=== PATIENT | female | born 1945 | race Hispanic/Latino ===

== ENCOUNTER 2019-02-26 08:02 | Emergency (ER) | payer MEDICARE ==
--- NOTE | 2019-02-26 08:53 | Emergency Department Report ---
ED General Adult HPI - General Chief complaint: Chest Pain Stated complaint: CHEST PAIN Time Seen by Provider: 02/26/19 08:40 Source: patient, EMS Mode of arrival: Stretcher Limitations: Physical Limitation, Other - History of Present Illness Initial comments: She presents to the emergency department with a chief complaint of left-sided sharp chest pain without radiation that has been continuous in nature for the last 2 days. Patient denies shortness breath, abdominal pain, nausea, vomiting. Patient denies a history of heart issues and states that she does not have high blood pressure although it's indicated on her chart. -: Sudden, days(s) (2) Location: chest Radiation: non-radiation Severity scale (0 -10): 3 Quality: sharp Consistency: constant Improves with: none Worsens with: none Associated Symptoms: denies other symptoms Treatments Prior to Arrival: none - Related Data Home Medications Medication Instructions Recorded Confirmed Last Taken Metoprolol [Lopressor TAB] 50 mg PO BID 02/26/19 02/26/19 02/25/19 20:00 Perphenazine/Amitriptyline HCl 4 mg PO BID 02/26/19 02/26/19 02/25/19 20:00 [Perphen-Amitrip 4 mg-10 mg] amLODIPine [Norvasc] 5 mg PO DAILY 02/26/19 02/26/19 02/25/19 08:00 risperiDONE [RisperiDONE] 3 mg PO QDAY 02/26/19 02/26/19 02/25/19 20:00 Allergies Allergy/AdvReac Type Severity Reaction Status Date / Time No Known Allergies Allergy Verified 02/26/19 08:16 ED Review of Systems ROS: Stated complaint: CHEST PAIN Other details as noted in HPI Comment: All other systems reviewed and negative Constitutional: denies: chills, fever Eyes: denies: eye pain, eye discharge, vision change ENT: denies: ear pain, throat pain Respiratory: denies: cough, shortness of breath, wheezing Cardiovascular: chest pain. denies: palpitations Endocrine: no symptoms reported Gastrointestinal: denies: abdominal pain, nausea, diarrhea Genitourinary: denies: urgency, dysuria, discharge Musculoskeletal: denies: back pain, joint swelling, arthralgia Skin: denies: rash, lesions Neurological: denies: headache, weakness, paresthesias Psychiatric: denies: anxiety, depression Hematological/Lymphatic: denies: easy bleeding, easy bruising ED Past Medical Hx - Past Medical History Previous Medical History?: Yes Hx Hypertension: Yes Hx Psychiatric Treatment: Yes (Bi-Polar) Hx Dementia: Yes - Surgical History Past Surgical History?: Yes Hx Cholecystectomy: Yes Additional Surgical History: "intestinal surgery" - Social History Smoking Status: Never Smoker Substance Use Type: None - Medications Home Medications: Home Medications Medication Instructions Recorded Confirmed Last Taken Type Metoprolol [Lopressor TAB] 50 mg PO BID 02/26/19 02/26/19 02/25/19 20:00 History Perphenazine/Amitriptyline HCl 4 mg PO BID 02/26/19 02/26/19 02/25/19 20:00 History [Perphen-Amitrip 4 mg-10 mg] amLODIPine [Norvasc] 5 mg PO DAILY 02/26/19 02/26/19 02/25/19 08:00 History risperiDONE [RisperiDONE] 3 mg PO QDAY 02/26/19 02/26/19 02/25/19 20:00 History ED Physical Exam - General Limitations: Physical Limitation, Other General appearance: alert, in no apparent distress - Head Head exam: Present: atraumatic, normocephalic - Eye Eye exam: Present: normal appearance, PERRL, EOMI - ENT ENT exam: Present: mucous membranes moist - Neck Neck exam: Present: normal inspection - Respiratory Respiratory exam: Present: normal lung sounds bilaterally. Absent: respiratory distress, wheezes, rales - Cardiovascular Cardiovascular Exam: Present: regular rate, normal rhythm. Absent: systolic murmur, diastolic murmur, rubs, gallop - GI/Abdominal GI/Abdominal exam: Present: soft, normal bowel sounds. Absent: distended, tenderness - Extremities Exam Extremities exam: Present: normal inspection - Back Exam Back exam: Present: normal inspection - Neurological Exam Neurological exam: Present: alert, oriented X3, CN II-XII intact. Absent: motor sensory deficit - Psychiatric Psychiatric exam: Present: normal affect, normal mood - Skin Skin exam: Present: warm, dry, intact, normal color. Absent: rash ED Course Vital Signs 02/26/19 02/26/19 02/26/19 08:30 08:37 08:52 Temperature 98.2 F Pulse Rate 65 60 Respiratory 18 20 Rate Blood Pressure 173/71 Blood Pressure 173/71 [Left] O2 Sat by Pulse 97 98 Oximetry 02/26/19 02/26/19 02/26/19 09:00 09:16 09:30 Temperature Pulse Rate 57 L 55 L 54 L Respiratory 12 14 20 Rate Blood Pressure 173/71 188/82 188/82 Blood Pressure [Left] O2 Sat by Pulse 96 97 98 Oximetry 02/26/19 02/26/19 02/26/19 09:46 10:00 10:16 Temperature Pulse Rate 53 L 56 L 55 L Respiratory 10 L 15 12 Rate Blood Pressure 180/72 180/72 156/81 Blood Pressure [Left] O2 Sat by Pulse 98 98 97 Oximetry 02/26/19 02/26/19 02/26/19 10:30 10:46 11:00 Temperature Pulse Rate 49 L 55 L 61 Respiratory 14 15 16 Rate Blood Pressure 156/81 158/70 158/70 Blood Pressure [Left] O2 Sat by Pulse 97 97 98 Oximetry 02/26/19 02/26/19 02/26/19 11:16 11:30 11:46 Temperature Pulse Rate 56 L 56 L 56 L Respiratory 14 13 14 Rate Blood Pressure 173/74 173/74 180/77 Blood Pressure [Left] O2 Sat by Pulse 97 98 97 Oximetry 02/26/19 02/26/19 12:00 12:04 Temperature 98.4 F Pulse Rate 59 L 61 Respiratory 17 15 Rate Blood Pressure 180/77 Blood Pressure 178/66 [Left] O2 Sat by Pulse 96 98 Oximetry ED Medical Decision Making - Lab Data Result diagrams: 02/26/19 08:24 02/26/19 08:24 Lab Results 02/26/19 02/26/19 02/26/19 Range/Units 08:24 08:24 08:24 WBC 8.3 (4.5-11.0) K/mm3 RBC 4.71 (3.65-5.03) M/mm3 Hgb 14.4 H (10.1-14.3) gm/dl Hct 42.7 (30.3-42.9) % MCV 91 (79-97) fl MCH 31 (28-32) pg MCHC 34 (30-34) % RDW 13.5 (13.2-15.2) % Plt Count 237 (140-440) K/mm3 Lymph % (Auto) 38.9 H (13.4-35.0) % [place] % (Auto) 5.6 (0.0-7.3) % Eos % (Auto) 2.0 (0.0-4.3) % Baso % (Auto) 0.7 (0.0-1.8) % Lymph # 3.2 (1.2-5.4) K/mm3 [place] # 0.5 (0.0-0.8) K/mm3 Eos # 0.2 (0.0-0.4) K/mm3 Baso # 0.1 (0.0-0.1) K/mm3 Seg Neutrophils % 52.8 (40.0-70.0) % Seg Neutrophils # 4.4 (1.8-7.7) K/mm3 PT 12.6 (12.2-14.9) Sec. INR 0.97 (0.87-1.13) APTT 32.0 (24.2-36.6) Sec. Sodium 142 (137-145) mmol/L Potassium 4.5 (3.6-5.0) mmol/L Chloride 105.0 (98-107) mmol/L Carbon Dioxide 25 (22-30) mmol/L Anion Gap 17 mmol/L BUN 21 H (7-17) mg/dL Creatinine 0.8 (0.7-1.2) mg/dL Estimated GFR > 60 ml/min BUN/Creatinine Ratio 26 % Glucose 100 (65-100) mg/dL Calcium 9.2 (8.4-10.2) mg/dL Troponin T < 0.010 (0.00-0.029) ng/mL NT-Pro-B Natriuret Pep (0-900) pg/mL Urine Color (Yellow) Urine Turbidity (Clear) Urine pH (5.0-7.0) Ur Specific [place] (1.003-1.030) Urine Protein (Negative) mg/dL Urine Glucose (UA) (Negative) mg/dL Urine Ketones (Negative) mg/dL Urine Blood (Negative) Urine Nitrite (Negative) Urine Bilirubin (Negative) Urine Urobilinogen (<2.0) mg/dL Ur Leukocyte Esterase (Negative) Urine WBC (Auto) (0.0-6.0) /HPF Urine RBC (Auto) (0.0-6.0) /HPF U Epithel Cells (Auto) (0-13.0) /HPF Urine Mucus /HPF Urine Opiates Screen Urine Methadone Screen Ur Barbiturates Screen Ur Phencyclidine Scrn Ur Amphetamines Screen U Benzodiazepines Scrn Urine Cocaine Screen U Marijuana (THC) Screen Drugs of Abuse Note 02/26/19 02/26/19 02/26/19 Range/Units 08:24 11:07 12:04 WBC (4.5-11.0) K/mm3 RBC (3.65-5.03) M/mm3 Hgb (10.1-14.3) gm/dl Hct (30.3-42.9) % MCV (79-97) fl MCH (28-32) pg MCHC (30-34) % RDW (13.2-15.2) % Plt Count (140-440) K/mm3 Lymph % (Auto) (13.4-35.0) % [place] % (Auto) (0.0-7.3) % Eos % (Auto) (0.0-4.3) % Baso % (Auto) (0.0-1.8) % Lymph # (1.2-5.4) K/mm3 [place] # (0.0-0.8) K/mm3 Eos # (0.0-0.4) K/mm3 Baso # (0.0-0.1) K/mm3 Seg Neutrophils % (40.0-70.0) % Seg Neutrophils # (1.8-7.7) K/mm3 PT (12.2-14.9) Sec. INR (0.87-1.13) APTT (24.2-36.6) Sec. Sodium (137-145) mmol/L Potassium (3.6-5.0) mmol/L Chloride (98-107) mmol/L Carbon Dioxide (22-30) mmol/L Anion Gap mmol/L BUN (7-17) mg/dL Creatinine (0.7-1.2) mg/dL Estimated GFR ml/min BUN/Creatinine Ratio % Glucose (65-100) mg/dL Calcium (8.4-10.2) mg/dL Troponin T < 0.010 (0.00-0.029) ng/mL NT-Pro-B Natriuret Pep 76.94 (0-900) pg/mL Urine Color (Yellow) Urine Turbidity (Clear) Urine pH (5.0-7.0) Ur Specific [place] (1.003-1.030) Urine Protein (Negative) mg/dL Urine Glucose (UA) (Negative) mg/dL Urine Ketones (Negative) mg/dL Urine Blood (Negative) Urine Nitrite (Negative) Urine Bilirubin (Negative) Urine Urobilinogen (<2.0) mg/dL Ur Leukocyte Esterase (Negative) Urine WBC (Auto) (0.0-6.0) /HPF Urine RBC (Auto) (0.0-6.0) /HPF U Epithel Cells (Auto) (0-13.0) /HPF Urine Mucus /HPF Urine Opiates Screen Presumptive negative Urine Methadone Screen Presumptive negative Ur Barbiturates Screen Presumptive negative Ur Phencyclidine Scrn Presumptive negative Ur Amphetamines Screen Presumptive negative U Benzodiazepines Scrn Presumptive negative Urine Cocaine Screen Presumptive negative U Marijuana (THC) Screen Presumptive negative Drugs of Abuse Note Disclamer 02/26/19 Range/Units 13:00 WBC (4.5-11.0) K/mm3 RBC (3.65-5.03) M/mm3 Hgb (10.1-14.3) gm/dl Hct (30.3-42.9) % MCV (79-97) fl MCH (28-32) pg MCHC (30-34) % RDW (13.2-15.2) % Plt Count (140-440) K/mm3 Lymph % (Auto) (13.4-35.0) % [place] % (Auto) (0.0-7.3) % Eos % (Auto) (0.0-4.3) % Baso % (Auto) (0.0-1.8) % Lymph # (1.2-5.4) K/mm3 [place] # (0.0-0.8) K/mm3 Eos # (0.0-0.4) K/mm3 Baso # (0.0-0.1) K/mm3 Seg Neutrophils % (40.0-70.0) % Seg Neutrophils # (1.8-7.7) K/mm3 PT (12.2-14.9) Sec. INR (0.87-1.13) APTT (24.2-36.6) Sec. Sodium (137-145) mmol/L Potassium (3.6-5.0) mmol/L Chloride (98-107) mmol/L Carbon Dioxide (22-30) mmol/L Anion Gap mmol/L BUN (7-17) mg/dL Creatinine (0.7-1.2) mg/dL Estimated GFR ml/min BUN/Creatinine Ratio % Glucose (65-100) mg/dL Calcium (8.4-10.2) mg/dL Troponin T (0.00-0.029) ng/mL NT-Pro-B Natriuret Pep (0-900) pg/mL Urine Color Yellow (Yellow) Urine Turbidity Clear (Clear) Urine pH 7.0 (5.0-7.0) Ur Specific [place] 1.015 (1.003-1.030) Urine Protein <15 mg/dl (Negative) mg/dL Urine Glucose (UA) Neg (Negative) mg/dL Urine Ketones Neg (Negative) mg/dL Urine Blood Neg (Negative) Urine Nitrite Neg (Negative) Urine Bilirubin Neg (Negative) Urine Urobilinogen < 2.0 (<2.0) mg/dL Ur Leukocyte Esterase Neg (Negative) Urine WBC (Auto) 1.0 (0.0-6.0) /HPF Urine RBC (Auto) 1.0 (0.0-6.0) /HPF U Epithel Cells (Auto) < 1.0 (0-13.0) /HPF Urine Mucus Few /HPF Urine Opiates Screen Urine Methadone Screen Ur Barbiturates Screen Ur Phencyclidine Scrn Ur Amphetamines Screen U Benzodiazepines Scrn Urine Cocaine Screen U Marijuana (THC) Screen Drugs of Abuse Note - EKG Data -: EKG Interpreted by Me EKG shows normal: sinus rhythm Rate: normal - Radiology Data Radiology results: report reviewed - Medical Decision Making Discussed results with patient Critical care attestation.: If time is entered above; I have spent that time in minutes in the direct care of this critically ill patient, excluding procedure time. ED Disposition Clinical Impression: Nonspecific chest pain Disposition: DC- TO HOME OR SELFCARE Is pt being admited?: No Does the pt Need Aspirin: No Condition: Stable Instructions: Noncardiac Chest Pain (ED), Chest Pain (ED) Additional Instructions: return if worse Referrals: PATTY MAYA MD [Primary Care Provider] - 3-5 Days TRIPP DUGAN MD [Staff Physician] - 3-5 Days [facility] [Provider Group] - 3-5 Days [facility] [Provider Group] - 3-5 Days Forms: Work/School Release Form(ED) Time of Disposition: 14:01
[2019-02-26 09:02] LABS: Basophils # (Auto) 0.1 K/mm3 (0.0-0.1); Basophils % (Auto) 0.7 % (0.0-1.8); Eosinophils # (Auto) 0.2 K/mm3 (0.0-0.4); Hematocrit 42.7 % (30.3-42.9); Hemoglobin 14.4 gm/dl (10.1-14.3); Lymphocytes # (Auto) 3.2 K/mm3 (1.2-5.4); Lymphocytes % (Auto) 38.9 % (13.4-35.0); Mean Corpuscular HGB Conc 34 % (30-34); Mean Corpuscular Volume 91 fl (79-97); Monocytes # (Auto) 0.5 K/mm3 (0.0-0.8); Monocytes % (Auto) 5.6 % (0.0-7.3); Platelet Count 237 K/mm3 (140-440); Red Blood Count 4.71 M/mm3 (3.65-5.03); Red Cell Distribution Width 13.5 % (13.2-15.2)
--- NOTE | 2019-02-26 09:07 | XRay Report ---
CHEST 1 VIEW, 02/26/2019 8:44 AM INDICATION: Chest pain COMPARISON: None FINDINGS: SUPPORT DEVICES: None HEART: Cardiac silhouette and pulmonary vascularity appear within normal limits LUNGS/PLEURA: There is no focal airspace disease or significant pleural effusion ADDITIONAL FINDINGS: No additional acute findings. IMPRESSION: 1. No evidence of acute cardiopulmonary process. Signer Name: Lary Monge MD Signed: 02/26/2019 9:02 AM Workstation Name: [id number]
[2019-02-26 09:12] LABS: INR 0.97 (0.87-1.13)
[2019-02-26 09:13] LABS: BUN/Creatinine Ratio 26; Blood Urea Nitrogen 21 mg/dL (7-17); Calcium 9.2 mg/dL (8.4-10.2); Hemolysis Index 14
[2019-02-26 12:20] LABS: Amphetamine Screen,Urine PRESUMPTIVE NEGATIVE; Benzodiazepines Screen,Urine PRESUMPTIVE NEGATIVE; Cannabinoid Screen,Urine PRESUMPTIVE NEGATIVE; Cocaine Screen,Urine PRESUMPTIVE NEGATIVE; Methadone Screen,Urine PRESUMPTIVE NEGATIVE; Opiate Screen,Urine PRESUMPTIVE NEGATIVE
[2019-02-26 13:36] LABS: Bilirubin,Urine NEG (Negative); Blood,Urine NEG (Negative); Color,Urine Yellow (Yellow); Mucus,Urine FEW /HPF; Protein,Urine <15 mg/dL mg/dL (Negative); Urobilinogen,Urine < 2.0 mg/dL (<2.0)
[2019-02-26 14:40] VITALS: BP 193/79
== END 2019-02-26 15:08 | disposition home or self-care (01) ==
LOC: ED 08:02
DX: R07.89 Other chest pain (principal); I10 Essential (primary) hypertension; F31.9 Bipolar disorder, unspecified; F03.90 Unspecified dementia, unspecified severity, without behavioral disturbance, psychotic disturbance, mood disturbance, and anxiety; Z90.49 Acquired absence of other specified parts of digestive tract; Z98.890 Other specified postprocedural states; Z79.899 Other long term (current) drug therapy
CPT/HCPCS: 36415; 71045; 80048; 80307; 81001; 83880; 84484; 85025; 85610; 85730; 93005; 93010

== ENCOUNTER 2021-08-16 19:46 | Emergency (ER) | payer MEDICARE ==
--- NOTE | 2021-08-16 21:31 | Emergency Department Report ---
HPI - General Chief Complaint: Altered Mental Status Time Seen by Provider: 08/16/21 20:57 - HPI HPI: Room 4 The patient is a 76-year-old female presenting with a chief complaint of altered mental status. Patient has a history of dementia and bipolar disorder is at an assisted living facility. Staff there states that the patient had her breakfast this evening at 18: 00 is normal and then went back to her room. Staff went to check on her and found her lying in the bed faceup with eyes open focused on one spot. Staff states the patient did not respond to them and so 911 was called. Staff states the patient remained with her eyes open but not speaking for approximately 30 to 40 minutes. The patient has a history of dementia and is normally confused at baseline. Upon arrival to the ED the patient is alert and talkative. Patient is pleasantly demented and not oriented to place or time ED Past Medical Hx - Past Medical History Previous Medical History?: Yes Hx Hypertension: Yes Hx Psychiatric Treatment: Yes (Bi-Polar) Hx Dementia: Yes - Surgical History Past Surgical History?: Yes Hx Cholecystectomy: Yes Additional Surgical History: "intestinal surgery" - Family History Family history: no significant - Social History Smoking Status: Never Smoker Substance Use Type: None - Medications Home Medications: Home Medications Medication Instructions Recorded Confirmed Last Taken Type Metoprolol [Lopressor TAB] 50 mg PO BID 02/26/19 04/13/21 04/12/21 07:00 History amLODIPine 5 mg PO DAILY 02/26/19 04/13/21 04/12/21 08:00 History risperiDONE [RisperiDONE] 3 mg PO QHS 02/26/19 04/13/21 02/25/19 20:00 History Divalproex [Grabiel Brooke] 500 mg PO QHS 04/13/21 04/13/21 04/11/21 20:00 History risperiDONE [RisperDAL] 2 mg PO DAILY 04/13/21 04/13/21 04/12/21 07:00 History traZODone [Desyrel] 50 mg PO QHS 04/13/21 04/13/21 04/11/21 20:00 History Amitriptyline [Elavil] 10 mg PO BID tablet 04/21/21 Unknown Rx Apixaban [Eliquis] 10 mg PO BID 30 Days #120 tablet 04/21/21 Unknown Rx Perphenazine [Trilafon] 4 mg PO BID tablet 04/21/21 Unknown Rx risperiDONE [RisperDAL] 2 mg PO DAILY tablet 04/21/21 Unknown Rx ED Review of Systems ROS: Stated complaint: AMS Other details as noted in HPI Constitutional: no symptoms reported Eyes: denies: eye pain ENT: denies: throat pain Respiratory: no symptoms reported Cardiovascular: denies: chest pain Endocrine: no symptoms reported Gastrointestinal: denies: abdominal pain Genitourinary: denies: dysuria Musculoskeletal: denies: back pain Neurological: denies: headache Psychiatric: other (Mental status change) Physical Exam - Physical Exam Vital Signs: Vital Signs 08/16/21 08/16/21 08/16/21 20:00 20:33 20:41 Temperature 98 F Pulse Rate 72 Respiratory 18 15 Rate Blood Pressure 200/76 Blood Pressure [Left] O2 Sat by Pulse 100 95 99 Oximetry 08/16/21 08/16/21 20:46 20:47 Temperature 96.8 F L Pulse Rate 72 73 Respiratory 10 L 19 Rate Blood Pressure 155/58 Blood Pressure 155/58 [Left] O2 Sat by Pulse 96 95 Oximetry Physical Exam: GENERAL: The patient is well-developed well-nourished female lying on stretcher not appearing to be in acute distress. [] HEENT: Normocephalic. Atraumatic. Extraocular motions are intact. Patient has moist mucous membranes. NECK: Supple. Trachea midline CHEST/LUNGS: Clear to auscultation. There is no respiratory distress noted. HEART/CARDIOVASCULAR: Regular. There is no tachycardia. There is no gallop rub or murmur. ABDOMEN: Abdomen is soft, nontender. Patient has normal bowel sounds. There is no abdominal distention. SKIN: There is no rash. There is no edema. There is no diaphoresis. NEURO: The patient is awake and alert. The patient is cooperative. The patient has no focal neurologic deficits. The patient has normal speech. Cranial nerves II through XII grossly intact. GCS 15 MUSCULOSKELETAL: There is no evidence of acute injury. ED Course Vital Signs 08/16/21 08/16/21 08/16/21 20:00 20:33 20:41 Temperature 98 F Pulse Rate 72 Respiratory 18 15 Rate Blood Pressure 200/76 Blood Pressure [Left] O2 Sat by Pulse 100 95 99 Oximetry 08/16/21 08/16/21 20:46 20:47 Temperature 96.8 F L Pulse Rate 72 73 Respiratory 10 L 19 Rate Blood Pressure 155/58 Blood Pressure 155/58 [Left] O2 Sat by Pulse 96 95 Oximetry ED Medical Decision Making - Lab Data Result diagrams: 08/16/21 21:24 08/16/21 21:24 Laboratory Tests 08/16/21 08/16/21 08/16/21 21:24 21:24 21:24 WBC 9.0 RBC 4.35 Hgb 13.0 Hct 39.1 MCV 90 MCH 30 MCHC 33 RDW 15.1 Plt Count 268 Lymph % (Auto) 26.0 [place] % (Auto) 7.0 Eos % (Auto) 1.5 Baso % (Auto) 0.7 Lymph # (Auto) 2.3 [place] # (Auto) 0.6 Eos # (Auto) 0.1 Baso # (Auto) 0.1 Seg Neutrophils % 64.8 Seg Neutrophils # 5.8 Sodium 142 Potassium 4.9 Chloride 103.7 Carbon Dioxide 27 Anion Gap 16 BUN 27 H Creatinine 0.6 Estimated GFR > 60 BUN/Creatinine Ratio 45 Glucose 97 Calcium 9.6 Total Bilirubin < 0.20 AST 50 H ALT 38 Alkaline Phosphatase 161 H Ammonia 12.0 L Total Creatine Kinase 32 CK-MB (CK-2) 1.4 CK-MB (CK-2) Rel Index 4.3 H Troponin T < 0.010 Total Protein 6.4 Albumin 3.7 L Albumin/Globulin Ratio 1.4 Valproic Acid Plasma/Serum Alcohol 08/16/21 08/16/21 22:48 22:48 WBC RBC Hgb Hct MCV MCH MCHC RDW Plt Count Lymph % (Auto) [place] % (Auto) Eos % (Auto) Baso % (Auto) Lymph # (Auto) [place] # (Auto) Eos # (Auto) Baso # (Auto) Seg Neutrophils % Seg Neutrophils # Sodium Potassium Chloride Carbon Dioxide Anion Gap BUN Creatinine Estimated GFR BUN/Creatinine Ratio Glucose Calcium Total Bilirubin AST ALT Alkaline Phosphatase Ammonia Total Creatine Kinase CK-MB (CK-2) CK-MB (CK-2) Rel Index Troponin T Total Protein Albumin Albumin/Globulin Ratio Valproic Acid 12.0 L Plasma/Serum Alcohol < 0.01 - EKG Data -: EKG Interpreted by De EKG shows normal: sinus rhythm Rate: normal - EKG Data When compared to previous EKG there are: previous EKG unavailable Interpretation: other (No ischemic changes seen) - Radiology Data Radiology results: report reviewed (CT head), image reviewed (CT head) [facility] [address] [place] [address] Cat Scan Report Signed Patient: PRITESH DARNELL MR#: [id number] : 1945 Acct:[id number] Age/Sex: 76 / F ADM Date: 08/16/21 Loc: ED Attending Dr: Ordering Physician: BLAS BRIGHT MD Date of Service: 08/16/21 Procedure(s): CT head/brain wo con Accession Number(s): [id number] cc: BLAS BRIGHT MD CT HEAD WITH OUT CONTRAST INDICATION: Episode of unresponsiveness. TECHNIQUE: All CT scans at this location are performed using CT dose reduction for ALARA by means of automated exposure control. COMPARISON: None available. FINDINGS: HEMORRHAGE: None. EXTRA-AXIAL SPACES: Normal in size and morphology for the patient's age. VENTRICULAR SYSTEM: Normal in size and morphology for the patient's age. BRAIN PARENCHYMA: No acute findings. Mild diffuse atrophy is noted. Deep periventricular white matter hypodensities are likely due to microangiopathy. MIDLINE SHIFT OR HERNIATION: None. ORBITS: Normal as visualized. SOFT TISSUES OF HEAD: Normal. CALVARIUM: Normal. VISUALIZED PARANASAL SINUSES AND MASTOID AIR CELLS: Clear. ADDITIONAL FINDINGS: None. IMPRESSION: 1. No acute intracranial abnormality. Signer Name: Jorge Gonzalez MD Signed: 08/16/2021 10:36 PM Workstation Name: [id number] Transcribed By: Dictated By: Jorge Gonzalez MD Electronically Authenticated By: Jorge Gonzalez MD Signed Date/Time: 08/16/21 2 236 DD/ 32 TD/TT: - Differential Diagnosis Bipolar disorder, dementia, catatonia, metabolic encephalopathy Critical care attestation.: If time is entered above; I have spent that time in minutes in the direct care of this critically ill patient, excluding procedure time. ED Disposition Clinical Impression: Dementia Disposition: [facility] Is pt being admited?: No Does the pt Need Aspirin: No Condition: Stable Referrals: MITRA RODRIGUEZ MD [Primary Care Provider] - 3-5 Days Time of Disposition: 00:03
[2021-08-16 22:17] LABS: Basophils # (Auto) 0.1 K/mm3 (0.0-0.1); Basophils % (Auto) 0.7 % (0.0-1.8); Eosinophils # (Auto) 0.1 K/mm3 (0.0-0.4); Eosinophils % (Auto) 1.5 % (0.0-4.3); Hematocrit 39.1 % (30.3-42.9); Lymphocytes # (Auto) 2.3 K/mm3 (1.2-5.4); Mean Corpuscular HGB Conc 33 % (30-34); Mean Corpuscular Volume 90 fl (79-97); Monocytes # (Auto) 0.6 K/mm3 (0.0-0.8); Platelet Count 268 K/mm3 (140-440); Red Blood Count 4.35 M/mm3 (3.65-5.03); Red Cell Distribution Width 15.1 % (13.2-15.2)
[2021-08-16 22:32] LABS: Creatine Kinase MB 1.4 ng/mL (0.0-4.0)
[2021-08-16 22:35] LABS: Alanine Aminotransferase 38 units/L (7-56); Albumin 3.7 g/dL (3.9-5); Blood Urea Nitrogen 27 mg/dL (7-17); Calcium 9.6 mg/dL (8.4-10.2); Hemolysis Index 30
[2021-08-16 22:41] LABS: BUN/Creatinine Ratio 45
--- NOTE | 2021-08-16 22:41 | Cat Scan Report ---
CT HEAD WITHOUT CONTRAST INDICATION: Episode of unresponsiveness. TECHNIQUE: All CT scans at this location are performed using CT dose reduction for ALARA by means of automated e xposure control. COMPARISON: None available. FINDINGS: HEMORRHAGE: None. EXTRA-AXIAL SPACES: Normal in size and morphology for the patient's age. VENTRICULAR SYSTEM: Normal in size and morphology for the patient's age. BRAIN PARENCHYMA: No acute findings. Mild diffuse atrophy is noted. Deep periventricular white matter hypodensities are likely due to microangiopathy. MIDLINE SHIFT OR HERNIATION: None. ORBITS: Normal as visualized. SOFT TISSUES OF HEAD: Normal. CALVARIUM: Normal. VISUALIZED PARANASAL SINUSES AND MASTOID AIR CELLS: Clear. ADDITIONAL FINDINGS: None. IMPRESSION: 1. No acute intracranial abnormality. Signer Name: Jorge Gonzalez MD Signed: 08/16/2021 10:36 PM Workstation Name: [id number]
[2021-08-17 01:29] VITALS: BP 119/43
--- NOTE | 2021-08-17 09:40 | Electrocardiograph Report ---
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
== END 2021-08-17 01:31 ==
LOC: ED 19:46
DX: F03.90 Unspecified dementia, unspecified severity, without behavioral disturbance, psychotic disturbance, mood disturbance, and anxiety (principal); I10 Essential (primary) hypertension; F31.9 Bipolar disorder, unspecified; Z90.49 Acquired absence of other specified parts of digestive tract
CPT/HCPCS: 36415; 70450; 80053; 80164; 80320; 82140; 82550; 82553; 84484; 85025; 93005; 93010; 99284; G0480

== ENCOUNTER 2021-10-06 15:53 | Emergency (ER) | payer MEDICARE ==
[2021-10-06 16:01] VITALS: BP 136/88
--- NOTE | 2021-10-06 16:33 | Emergency Department Report ---
ED Fall HPI - General Chief Complaint: Fall Stated Complaint: R LEG PAIN Time Seen by Provider: 10/06/21 16:21 Source: patient, EMS Mode of arrival: Stretcher - History of Present Illness Initial Comments: Patient is 76-year-old female with history of dementia. Patient brought to the emergency room for personal-halfway for evaluation after a fall that happened last night. EMS stated that another group went yesterday and patient was not taken to the ER. EMS reported that personnel home care staff reported that when she woke up this morning and try to walk her right lower extremity is hurting her and is unable to walk. Patient stated that she does not remember the incident very well. MD Complaint: fall -: Last night Fall From: standing Place Fall Occurred: custodial/SNF Loss of Consciousness: none Prolonged Down Time?: no Symptoms Prior to Fall: none Location: head, pelvis Location - Extremities: Right: Knee Severity scale (0 -10): 3 Quality: sharp Context: tripped/slipped Associated Symptoms: denies - Related Data Home Medications Medication Instructions Recorded Confirmed Last Taken Metoprolol [Lopressor TAB] 50 mg PO BID 02/26/19 04/13/21 04/12/21 07:00 amLODIPine 5 mg PO DAILY 02/26/19 04/13/21 04/12/21 08:00 risperiDONE [RisperiDONE] 3 mg PO QHS 02/26/19 04/13/21 02/25/19 20:00 Divalproex [Grabiel Brooke] 500 mg PO QHS 04/13/21 04/13/21 04/11/21 20:00 risperiDONE [RisperDAL] 2 mg PO DAILY 04/13/21 04/13/21 04/12/21 07:00 traZODone [Desyrel] 50 mg PO QHS 04/13/21 04/13/21 04/11/21 20:00 Previous Rx's Medication Instructions Recorded Last Taken Type Amitriptyline [Elavil] 10 mg PO BID tablet 04/21/21 Unknown Rx Apixaban [Eliquis] 10 mg PO BID 30 Days #120 tablet 04/21/21 Unknown Rx Perphenazine [Trilafon] 4 mg PO BID tablet 04/21/21 Unknown Rx risperiDONE [RisperDAL] 2 mg PO DAILY tablet 04/21/21 Unknown Rx Allergies Allergy/AdvReac Type Severity Reaction Status Date / Time No Known Allergies Allergy Verified 02/26/19 08:16 ED Review of Systems ROS: Stated complaint: R LEG PAIN Other details as noted in HPI Comment: All other systems reviewed and negative Constitutional: denies: chills, fever Respiratory: denies: cough, shortness of breath, SOB with exertion Cardiovascular: denies: chest pain, palpitations Gastrointestinal: denies: abdominal pain, nausea, vomiting Musculoskeletal: denies: back pain Neurological: denies: headache, weakness, numbness, paresthesias, confusion, abnormal gait Psychiatric: denies: anxiety ED Past Medical Hx - Past Medical History Hx Hypertension: Yes Hx Psychiatric Treatment: Yes (Bi-Polar) Hx Dementia: Yes - Surgical History Hx Cholecystectomy: Yes Additional Surgical History: "intestinal surgery" - Social History Smoking Status: Never Smoker Substance Use Type: None - Medications Home Medications: Home Medications Medication Instructions Recorded Confirmed Last Taken Type Metoprolol [Lopressor TAB] 50 mg PO BID 02/26/19 04/13/21 04/12/21 07:00 History amLODIPine 5 mg PO DAILY 02/26/19 04/13/21 04/12/21 08:00 History risperiDONE [RisperiDONE] 3 mg PO QHS 02/26/19 04/13/21 02/25/19 20:[address] [Grabiel Brooke] 500 mg PO QHS 04/13/21 04/13/21 04/11/21 20:00 History risperiDONE [RisperDAL] 2 mg PO DAILY 04/13/21 04/13/21 04/12/21 07:00 History traZODone [Desyrel] 50 mg PO QHS 04/13/21 04/13/21 04/11/21 20:00 History Amitriptyline [Elavil] 10 mg PO BID tablet 04/21/21 Unknown Rx Apixaban [Eliquis] 10 mg PO BID 30 Days #120 tablet 04/21/21 Unknown Rx Perphenazine [Trilafon] 4 mg PO BID tablet 04/21/21 Unknown Rx risperiDONE [RisperDAL] 2 mg PO DAILY tablet 04/21/21 Unknown Rx ED Physical Exam - General Limitations: Physical Limitation General appearance: alert, in no apparent distress - Head Head exam: Present: atraumatic, normocephalic, normal inspection - Eye Eye exam: Present: normal appearance - ENT ENT exam: Present: normal exam, normal orophraynx, mucous membranes moist - Neck Neck exam: Present: normal inspection, full ROM. Absent: tenderness, meningismus - Respiratory Respiratory exam: Present: normal lung sounds bilaterally - Cardiovascular Cardiovascular Exam: Present: regular rate, normal rhythm, normal heart sounds - GI/Abdominal GI/Abdominal exam: Present: soft, normal bowel sounds. Absent: distended, tenderness, guarding, rebound, rigid, organomegaly, mass, bruit, pulsatile mass, hernia - Extremities Exam Extremities exam: Present: normal inspection, normal capillary refill - Expanded Lower Extremity Exam Right Knee exam: Present: tenderness, swelling Lower Leg exam: Present: normal inspection, full ROM. Absent: tenderness Ankle exam: Present: normal inspection, full ROM. Absent: tenderness Foot/Toe exam: Present: normal inspection, full ROM. Absent: tenderness Neuro vascular tendon exam: Present: no vascular compromise - Back Exam Back exam: Present: normal inspection, full ROM. Absent: CVA tenderness (R), CVA tenderness (L), muscle spasm - Neurological Exam Neurological exam: Present: alert, oriented X3, CN II-XII intact - Psychiatric Psychiatric exam: Present: normal mood - Skin Skin exam: Present: warm ED Course Vital Signs 10/06/21 16:00 Temperature 98.1 F Pulse Rate 78 Respiratory 16 Rate Blood Pressure 136/88 [Left] O2 Sat by Pulse 97 Oximetry ED Medical Decision Making - Radiology Data Radiology results: report reviewed - Medical Decision Making Patient is 76-year-old female with history of dementia. Patient brought to the emergency room for personal-halfway for evaluation after a fall that happened last night. EMS stated that another group went yesterday and patient was not taken to the ER. EMS reported that personnel home care staff reported that when she woke up this morning and try to walk her right lower extremity is hurting her and is unable to walk. Patient stated that she does not remember the incident very well. Patient remained stable in the ER with a stable vital sign. CT brain is negative for acute finding. X-ray of the right hip and right knee showed no acute fracture or dislocation. Patient given prescription for Naprosyn advised to follow-up with primary doctor in the next 2 to 3 days and to return to the ER if she develop any new symptoms. Critical care attestation.: If time is entered above; I have spent that time in minutes in the direct care of this critically ill patient, excluding procedure time. ED Disposition Clinical Impression: Fall, Right knee injury Disposition: 01 HOME / SELF CARE / HOMELESS Is pt being admited?: No Condition: Stable Instructions: Knee Sprain, Adult, [id number] Referrals: PRIMARY CARE,MD [Primary Care Provider] - 3-5 Days
--- NOTE | 2021-10-06 20:14 | XRay Report ---
RIGHT KNEE, 2 VIEW INDICATION / CLINICAL INFORMATION: knee injury. Right leg pain after a fall. COMPARISON: . None FINDINGS: The bones are demineralized. I do not see acute fracture or dislocation. There is no significant join t effusion. Moderate degenerative changes are present in the knee primarily affecting the medial join t compartment. No significant soft tissue abnormality noted. IMPRESSION: Degenerative changes but no suggestion of acute fracture or dislocation. Signer Name: aMia Fairbanks MD Signed: 10/06/2021 8:09 PM Workstation Name: [id number]
--- NOTE | 2021-10-06 20:15 | XRay Report ---
RIGHT HIP, 4 VIEWS INDICATION / CLINICAL INFORMATION: right lower extremity injury. Patient fell COMPARISON: None available. FINDINGS: No fracture or dislocation involving the right hip. Mild degenerative changes present in the right hi p. Accompanying view of the pelvis is also unremarkable. IMPRESSION: No acute fracture or dislocation involving the right hip/pelvis. Signer Name: Maia Fairbanks MD Signed: 10/06/2021 8:11 PM Workstation Name: [id number]
--- NOTE | 2021-10-06 21:03 | Cat Scan Report ---
CT head/brain wo con INDICATION: head injury. TECHNIQUE: Routine CT head. All CT scans at this location are performed using CT dose reduction for A AMEENA by means of automated exposure control. COMPARISON: 08/16/2021 FINDINGS: Intracranial: Mijares-white matter differentiation is maintained. No intracranial hemorrhage. No extra a xial collection. No hydrocephalus. No herniation. Small area of encephalomalacia in the right occipit al lobe. Sinuses: Paranasal sinuses and mastoid air cells are essentially clear. Orbits: Globes are intact. Calvarium: No acute fracture. Sebaceous cysts in the posterior scalp. IMPRESSION: 1. No acute intracranial abnormality. Signer Name: Harry Jacobson MD Signed: 10/06/2021 8:58 PM Workstation Name: [id number]
== END 2021-10-07 05:12 | disposition home or self-care (01) ==
LOC: ED 15:53
DX: S89.91XA Unspecified injury of right lower leg, initial encounter (principal); I10 Essential (primary) hypertension; F03.90 Unspecified dementia, unspecified severity, without behavioral disturbance, psychotic disturbance, mood disturbance, and anxiety; Z90.49 Acquired absence of other specified parts of digestive tract; W18.39XA Other fall on same level, initial encounter; Y93.89 Activity, other specified; Y92.89 Other specified places as the place of occurrence of the external cause; Y99.8 Other external cause status
CPT/HCPCS: 70450; 99284

== ENCOUNTER 2021-12-01 16:48 | Inpatient (IN) | payer MEDICARE ==
--- NOTE | 2021-12-01 18:18 | XRay Report ---
CHEST 1 VIEW 12/01/2021 5:42 PM INDICATION / CLINICAL INFORMATION: Altered Mental Status. COMPARISON: 04/12/2021 FINDINGS: SUPPORT DEVICES: None. HEART / MEDIASTINUM: No significant abnormality. LUNGS / PLEURA: No significant pulmonary or pleural abnormality. No pneumothorax. ADDITIONAL FINDINGS: No significant additional findings. IMPRESSION: No acute abnormality. Signer Name: Chuck Miller MD Signed: 12/01/2021 6:14 PM Workstation Name: [id number]
[2021-12-01 18:49] LABS: Basophils # (Auto) 0.1 K/mm3 (0.0-0.1); Basophils % (Auto) 0.8 % (0.0-1.8); Eosinophils % (Auto) 0.1 % (0.0-4.3); Hematocrit 46.2 % (30.3-42.9); Hemoglobin 15.1 gm/dl (10.1-14.3); Lymphocytes # (Auto) 3.2 K/mm3 (1.2-5.4); Lymphocytes % (Auto) 19.9 % (13.4-35.0); Mean Corpuscular HGB Conc 33 % (30-34); Mean Corpuscular Volume 91 fl (79-97); Monocytes # (Auto) 1.4 K/mm3 (0.0-0.8); Monocytes % (Auto) 8.9 % (0.0-7.3); Platelet Count 358 K/mm3 (140-440); Red Blood Count 5.08 M/mm3 (3.65-5.03); Red Cell Distribution Width 13.7 % (13.2-15.2)
[2021-12-01 18:59] LABS: Partial Thromboplastin Time 31.7 Sec. (24.2-36.6)
--- NOTE | 2021-12-01 19:01 | Emergency Department Report ---
ED General Adult HPI - General Chief complaint: Altered Mental Status Stated complaint: AMS Time Seen by Provider: 12/01/21 17:13 Source: EMS Mode of arrival: Stretcher Limitations: Altered Mental Status - History of Present Illness Initial comments: The patient presents to the emergency department via EMS for altered mental status. The patient resides in a [facility] and she was sent to the emergency department today because she was not responding like she normally does. There is no family at the bedside and all history is obtained via EMS. Patient is confused and does not answer questions on exam. -: unknown Severity scale (0 -10): 0 Consistency: constant Improves with: none Worsens with: none Treatments Prior to Arrival: none - Related Data Home Medications Medication Instructions Recorded Confirmed Last Taken Metoprolol [Lopressor TAB] 50 mg PO BID 02/26/19 04/13/21 04/12/21 07:00 amLODIPine 5 mg PO DAILY 02/26/19 04/13/21 04/12/21 08:00 risperiDONE [RisperiDONE] 3 mg PO QHS 02/26/19 04/13/21 02/25/19 20:[address] [Depakote Dr] 500 mg PO QHS 04/13/21 04/13/21 04/11/21 20:00 risperiDONE [RisperDAL] 2 mg PO DAILY 04/13/21 04/13/21 04/12/21 07:00 traZODone [Desyrel] 50 mg PO QHS 04/13/21 04/13/21 04/11/21 20:00 Previous Rx's Medication Instructions Recorded Last Taken Type Amitriptyline [Elavil] 10 mg PO BID tablet 04/21/21 Unknown Rx Apixaban [Eliquis] 10 mg PO BID 30 Days #120 tablet 04/21/21 Unknown Rx Perphenazine [Trilafon] 4 mg PO BID tablet 04/21/21 Unknown Rx risperiDONE [RisperDAL] 2 mg PO DAILY tablet 04/21/21 Unknown Rx Naproxen [Naprosyn] 500 mg PO BID #14 tablet 10/06/21 Unknown Rx Allergies Allergy/AdvReac Type Severity Reaction Status Date / Time No Known Allergies Allergy Verified 12/01/21 18:48 ED Review of Systems ROS: Stated complaint: AMS Other details as noted in HPI Comment: Unobtainable due to pts medical conditions (altered) ED Past Medical Hx - Past Medical History Previous Medical History?: Yes Hx Hypertension: Yes Hx Psychiatric Treatment: Yes (Bi-Polar) Hx Dementia: Yes - Surgical History Past Surgical History?: Yes Hx Cholecystectomy: Yes Additional Surgical History: "intestinal surgery" - Social History Smoking Status: Never Smoker - Medications Home Medications: Home Medications Medication Instructions Recorded Confirmed Last Taken Type Metoprolol [Lopressor TAB] 50 mg PO BID 02/26/19 04/13/21 04/12/21 07:00 History amLODIPine 5 mg PO DAILY 02/26/19 04/13/21 04/12/21 08:00 History risperiDONE [RisperiDONE] 3 mg PO QHS 02/26/19 04/13/21 02/25/19 20:[address] [Depakote Dr] 500 mg PO QHS 04/13/21 04/13/21 04/11/21 20:00 History risperiDONE [RisperDAL] 2 mg PO DAILY 04/13/21 04/13/21 04/12/21 07:00 History traZODone [Desyrel] 50 mg PO QHS 04/13/21 04/13/21 04/11/21 20:00 History Amitriptyline [Elavil] 10 mg PO BID tablet 04/21/21 Unknown Rx Apixaban [Eliquis] 10 mg PO BID 30 Days #120 tablet 04/21/21 Unknown Rx Perphenazine [Trilafon] 4 mg PO BID tablet 04/21/21 Unknown Rx risperiDONE [RisperDAL] 2 mg PO DAILY tablet 04/21/21 Unknown Rx Naproxen [Naprosyn] 500 mg PO BID #14 tablet 10/06/21 Unknown Rx ED Physical Exam - General Limitations: Altered Mental Status General appearance: in no apparent distress - Head Head exam: Present: atraumatic, normocephalic - Eye Eye exam: Present: normal appearance - ENT ENT exam: Present: mucous membranes dry - Neck Neck exam: Present: normal inspection - Respiratory Respiratory exam: Present: normal lung sounds bilaterally. Absent: respiratory distress - Cardiovascular Cardiovascular Exam: Present: tachycardia, irregular rhythm, other (Irregularly irregular). Absent: systolic murmur, diastolic murmur, rubs, gallop - GI/Abdominal GI/Abdominal exam: Present: soft, normal bowel sounds. Absent: distended, tenderness - Extremities Exam Extremities exam: Present: normal inspection - Back Exam Back exam: Present: normal inspection - Neurological Exam Neurological exam: Present: altered - Psychiatric Psychiatric exam: Present: normal affect, normal mood - Skin Skin exam: Present: warm, dry, intact, normal color. Absent: rash ED Course Vital Signs 12/01/21 12/01/21 12/01/21 17:03 17:31 17:45 Temperature 99.6 F Pulse Rate 111 H 106 H 108 H Respiratory 17 40 H 26 H Rate Blood Pressure 108/47 Blood Pressure 150/90 [Left] O2 Sat by Pulse 98 94 Oximetry 12/01/21 12/01/21 12/01/21 17:46 18:01 18:15 Temperature Pulse Rate 105 H 109 H Respiratory 46 H 32 H Rate Blood Pressure 119/48 119/48 Blood Pressure [Left] O2 Sat by Pulse 98 94 94 Oximetry 12/01/21 18:37 Temperature Pulse Rate 106 H Respiratory 21 Rate Blood Pressure Blood Pressure [Left] O2 Sat by Pulse 95 Oximetry ED Medical Decision Making - Lab Data Result diagrams: 12/01/21 18:05 12/01/21 18:05 Lab Results 12/01/21 12/01/21 12/01/21 Range/Units 18:05 18:05 18:05 WBC 16.2 H (4.5-11.0) K/mm3 RBC 5.08 H (3.65-5.03) M/mm3 Hgb 15.1 H (10.1-14.3) gm/dl Hct 46.2 H (30.3-42.9) % MCV 91 (79-97) fl MCH 30 (28-32) pg MCHC 33 (30-34) % RDW 13.7 (13.2-15.2) % Plt Count 358 (140-440) K/mm3 Lymph % (Auto) 19.9 (13.4-35.0) % [place] % (Auto) 8.9 H (0.0-7.3) % Eos % (Auto) 0.1 (0.0-4.3) % Baso % (Auto) 0.8 (0.0-1.8) % Lymph # (Auto) 3.2 (1.2-5.4) K/mm3 [place] # (Auto) 1.4 H (0.0-0.8) K/mm3 Eos # (Auto) 0.0 (0.0-0.4) K/mm3 Baso # (Auto) 0.1 (0.0-0.1) K/mm3 Seg Neutrophils % 70.3 H (40.0-70.0) % Seg Neutrophils # 11.4 H (1.8-7.7) K/mm3 PT 14.3 (12.2-14.9) Sec. INR 1.00 (0.87-1.13) APTT 31.7 (24.2-36.6) Sec. Sodium 137 (137-145) mmol/L Potassium 4.1 (3.6-5.0) mmol/L Chloride 97.0 L (98-107) mmol/L Carbon Dioxide 22 (22-30) mmol/L Anion Gap 22 mmol/L BUN 67 H (7-17) mg/dL Creatinine 1.1 (0.6-1.2) mg/dL Estimated GFR 48 ml/min BUN/Creatinine Ratio 61 % Glucose 142 H (65-100) mg/dL Lactic Acid (0.7-2.0) mmol/L Calcium 10.0 (8.4-10.2) mg/dL Total Bilirubin 0.30 (0.1-1.2) mg/dL AST 18 (5-40) units/L ALT 16 (7-56) units/L Alkaline Phosphatase 71 (35-129) units/L Ammonia (25-60) umol/L Total Creatine Kinase 327 H (30-135) units/L Troponin T < 0.010 (0.00-0.029) ng/mL NT-Pro-B Natriuret Pep (0-900) pg/mL Total Protein 7.4 (6.3-8.2) g/dL Albumin 3.9 (3.9-5) g/dL Albumin/Globulin Ratio 1.1 % TSH (0.270-4.200) mlU/mL Salicylates (2.8-20.0) mg/dL Acetaminophen (10.0-30.0) ug/mL Plasma/Serum Alcohol (0-0.07) % 12/01/21 12/01/21 12/01/21 Range/Units 18:05 18:05 18:05 WBC (4.5-11.0) K/mm3 RBC (3.65-5.03) M/mm3 Hgb (10.1-14.3) gm/dl Hct (30.3-42.9) % MCV (79-97) fl MCH (28-32) pg MCHC (30-34) % RDW (13.2-15.2) % Plt Count (140-440) K/mm3 Lymph % (Auto) (13.4-35.0) % [place] % (Auto) (0.0-7.3) % Eos % (Auto) (0.0-4.3) % Baso % (Auto) (0.0-1.8) % Lymph # (Auto) (1.2-5.4) K/mm3 [place] # (Auto) (0.0-0.8) K/mm3 Eos # (Auto) (0.0-0.4) K/mm3 Baso # (Auto) (0.0-0.1) K/mm3 Seg Neutrophils % (40.0-70.0) % Seg Neutrophils # (1.8-7.7) K/mm3 PT (12.2-14.9) Sec. INR (0.87-1.13) APTT (24.2-36.6) Sec. Sodium (137-145) mmol/L Potassium (3.6-5.0) mmol/L Chloride (98-107) mmol/L Carbon Dioxide (22-30) mmol/L Anion Gap mmol/L BUN (7-17) mg/dL Creatinine (0.6-1.2) mg/dL Estimated GFR ml/min BUN/Creatinine Ratio % Glucose (65-100) mg/dL Lactic Acid 1.60 (0.7-2.0) mmol/L Calcium (8.4-10.2) mg/dL Total Bilirubin (0.1-1.2) mg/dL AST (5-40) units/L ALT (7-56) units/L Alkaline Phosphatase (35-129) units/L Ammonia 29.0 (25-60) umol/L Total Creatine Kinase (30-135) units/L Troponin T (0.00-0.029) ng/mL NT-Pro-B Natriuret Pep (0-900) pg/mL Total Protein (6.3-8.2) g/dL Albumin (3.9-5) g/dL Albumin/Globulin Ratio % TSH 2.300 (0.270-4.200) mlU/mL Salicylates (2.8-20.0) mg/dL Acetaminophen (10.0-30.0) ug/mL Plasma/Serum Alcohol (0-0.07) % 12/01/21 12/01/21 12/01/21 Range/Units 18:05 18:05 18:05 WBC (4.5-11.0) K/mm3 RBC (3.65-5.03) M/mm3 Hgb (10.1-14.3) gm/dl Hct (30.3-42.9) % MCV (79-97) fl MCH (28-32) pg MCHC (30-34) % RDW (13.2-15.2) % Plt Count (140-440) K/mm3 Lymph % (Auto) (13.4-35.0) % [place] % (Auto) (0.0-7.3) % Eos % (Auto) (0.0-4.3) % Baso % (Auto) (0.0-1.8) % Lymph # (Auto) (1.2-5.4) K/mm3 [place] # (Auto) (0.0-0.8) K/mm3 Eos # (Auto) (0.0-0.4) K/mm3 Baso # (Auto) (0.0-0.1) K/mm3 Seg Neutrophils % (40.0-70.0) % Seg Neutrophils # (1.8-7.7) K/mm3 PT (12.2-14.9) Sec. INR (0.87-1.13) APTT (24.2-36.6) Sec. Sodium (137-145) mmol/L Potassium (3.6-5.0) mmol/L Chloride (98-107) mmol/L Carbon Dioxide (22-30) mmol/L Anion Gap mmol/L BUN (7-17) mg/dL Creatinine (0.6-1.2) mg/dL Estimated GFR ml/min BUN/Creatinine Ratio % Glucose (65-100) mg/dL Lactic Acid (0.7-2.0) mmol/L Calcium (8.4-10.2) mg/dL Total Bilirubin (0.1-1.2) mg/dL AST (5-40) units/L ALT (7-56) units/L Alkaline Phosphatase (35-129) units/L Ammonia (25-60) umol/L Total Creatine Kinase (30-135) units/L Troponin T (0.00-0.029) ng/mL NT-Pro-B Natriuret Pep (0-900) pg/mL Total Protein (6.3-8.2) g/dL Albumin (3.9-5) g/dL Albumin/Globulin Ratio % TSH (0.270-4.200) mlU/mL Salicylates < 0.3 L (2.8-20.0) mg/dL Acetaminophen 5.0 L (10.0-30.0) ug/mL Plasma/Serum Alcohol < 0.01 (0-0.07) % 06// Range/Units 18:05 WBC (4.5-11.0) K/mm3 RBC (3.65-5.03) M/mm3 Hgb (10.1-14.3) gm/dl Hct (30.3-42.9) % MCV (79-97) fl MCH (28-32) pg MCHC (30-34) % RDW (13.2-15.2) % Plt Count (140-440) K/mm3 Lymph % (Auto) (13.4-35.0) % [place] % (Auto) (0.0-7.3) % Eos % (Auto) (0.0-4.3) % Baso % (Auto) (0.0-1.8) % Lymph # (Auto) (1.2-5.4) K/mm3 [place] # (Auto) (0.0-0.8) K/mm3 Eos # (Auto) (0.0-0.4) K/mm3 Baso # (Auto) (0.0-0.1) K/mm3 Seg Neutrophils % (40.0-70.0) % Seg Neutrophils # (1.8-7.7) K/mm3 PT (12.2-14.9) Sec. INR (0.87-1.13) APTT (24.2-36.6) Sec. Sodium (137-145) mmol/L Potassium (3.6-5.0) mmol/L Chloride (98-107) mmol/L Carbon Dioxide (22-30) mmol/L Anion Gap mmol/L BUN (7-17) mg/dL Creatinine (0.6-1.2) mg/dL Estimated GFR ml/min BUN/Creatinine Ratio % Glucose (65-100) mg/dL Lactic Acid (0.7-2.0) mmol/L Calcium (8.4-10.2) mg/dL Total Bilirubin (0.1-1.2) mg/dL AST (5-40) units/L ALT (7-56) units/L Alkaline Phosphatase (35-129) units/L Ammonia (25-60) umol/L Total Creatine Kinase (30-135) units/L Troponin T (0.00-0.029) ng/mL NT-Pro-B Natriuret Pep 606.0 (0-900) pg/mL Total Protein (6.3-8.2) g/dL Albumin (3.9-5) g/dL Albumin/Globulin Ratio % TSH (0.270-4.200) mlU/mL Salicylates (2.8-20.0) mg/dL Acetaminophen (10.0-30.0) ug/mL Plasma/Serum Alcohol (0-0.07) % - EKG Data -: EKG Interpreted by Me Rate: tachycardia - EKG Data 12/01/21 19:51 A. fib - Medical Decision Making IV antibiotics initiated IV fluids given Critical care attestation.: If time is entered above; I have spent that time in minutes in the direct care o f this critically ill patient, excluding procedure time. ED Disposition Clinical Impression: Altered mental status, Leukocytosis, Afib Disposition: ADMITTED INPATIENT Is pt being admited?: Yes Does the pt Need Aspirin: Yes Condition: Fair Referrals: MITRA RODRIGUEZ MD [Primary Care Provider] - 3-5 Days
[2021-12-01 19:08] LABS: Alanine Aminotransferase 16 units/L (7-56); Albumin 3.9 g/dL (3.9-5); BUN/Creatinine Ratio 61; Blood Urea Nitrogen 67 mg/dL (7-17); Hemolysis Index 4
[2021-12-01] MEDS ORDERED: CEFEPIME/NS 2 GM/100 ML 2 GM/100 ML BAG IV ONE ×2 (19:51→23:29)
[2021-12-01] MEDS ORDERED: SODIUM CHLORIDE 0.9% 1000 ML 1,000 ML IV ONE (19:51)
--- NOTE | 2021-12-01 19:51 | Cat Scan Report ---
CT head/brain wo con INDICATION / CLINICAL INFORMATION: 76 years Female; Altered Mental Status. TECHNIQUE: Routine CT head without contrast. All CT scans at this location are performed using CT dos e reduction for ALARA by means of automated exposure control. COMPARISON: The study is compared to previous CT of 10/06/2021. FINDINGS: BRAIN / INTRACRANIAL CONTENTS: The motion degrades the image quality. However, there appears be moder ate cerebral white matter disease most consistent with microvascular angiopathy. There is mild cerebr al atrophy with associated prominence of the ventricular system. There is no clear CT evidence of acu te intracranial hemorrhage or significant mass effect. ORBITS: No significant abnormality of visualized orbits. SINUSES / MASTOIDS: No significant abnormality in the visualized paranasal sinuses or mastoid air brad ls. CRANIOCERVICAL JUNCTION: No significant abnormality. ADDITIONAL FINDINGS: There are persistent a small nodules involving scalp near the vertex which are u nchanged. IMPRESSION: 1. This continued microvascular angiopathy and cerebral atrophy as described without clear CT evidenc e of acute intracranial hemorrhage. Signer Name: Franklin Girard MD Signed: 12/01/2021 7:46 PM Workstation Name: [id number]
[2021-12-01] MEDS ORDERED: ASPIRIN 81 MG TAB CHEW PO ONE (19:53)
[2021-12-01 20:03] LABS: ABG Base Excess -0.1 mmol/L (-2.0-3.0); ABG HCO3 23.3 mmol/L (20.0-26.0); ABG Methemoglobin 0.6 % (0.0-1.5); ABG Oxygen Saturation 95.8 % (95.0-99.0); ABG PCO2 34.7 mm Hg; ABG PH 7.445 pH Units (7.350-7.450); ABG PO2 72.9 mm Hg (80.0-90.0)
[2021-12-01] MEDS ORDERED: ONDANSETRON 4 MG/2 ML INJ IV PRN (21:11)
[2021-12-01] MEDS ORDERED: MORPHINE 4 MG/1 ML INJ IV PRN (21:11)
[2021-12-01] MEDS ORDERED: MORPHINE 2 MG/1 ML INJ IV PRN (21:11)
[2021-12-01] MEDS ORDERED: ALBUTEROL 2.5 MG/3 ML NEBU IH PRN (21:11)
--- NOTE | 2021-12-01 21:19 | History and Physical Report ---
History of Present Illness Date of examination: 12/01/21 Date of admission: 12/01/21 Chief complaint: Altered mental status History of present illness: 76 years old female with past medical history of dementia, hypertension, bipolar disorder was brought to the emergency room because of altered mental status. The patient resides in a senior care and she was sent to the emergency department today because she was not responding like she normally does. There is no family at the bedside and all history is obtained via EMS. Patient is confused and does not answer questions on exam. In the emergency room patient is found to have WBC of 16.2, BUN of 67 creatinine 1.1, lactic acid 1.60. Initial CT scan of the head shows no acute intracranial abnormality Past History Past Medical History: hypertension, other (Dementia and bipolar disorder) Past Surgical History: cholecystectomy, Other (Intestinal surgery) Social history: no significant social history Family history: hypertension Medications and Allergies Allergies Allergy/AdvReac Type Severity Reaction Status Date / Time No Known Allergies Allergy Verified 12/01/21 18:48 Home Medications Medication Instructions Recorded Confirmed Last Taken Type Metoprolol [Lopressor TAB] 50 mg PO BID 02/26/19 04/13/21 04/12/21 07:00 History amLODIPine 5 mg PO DAILY 02/26/19 04/13/21 04/12/21 08:00 History risperiDONE [RisperiDONE] 3 mg PO QHS 02/26/19 04/13/21 02/25/19 20:[address] [Grabiel Brooke] 500 mg PO QHS 04/13/21 04/13/21 04/11/21 20:00 History risperiDONE [RisperDAL] 2 mg PO DAILY 04/13/21 04/13/21 04/12/21 07:00 History traZODone [Desyrel] 50 mg PO QHS 04/13/21 04/13/21 04/11/21 20:00 History Amitriptyline [Elavil] 10 mg PO BID tablet 04/21/21 Unknown Rx Apixaban [Eliquis] 10 mg PO BID 30 Days #120 tablet 04/21/21 Unknown Rx Perphenazine [Trilafon] 4 mg PO BID tablet 04/21/21 Unknown Rx risperiDONE [RisperDAL] 2 mg PO DAILY tablet 04/21/21 Unknown Rx Naproxen [Naprosyn] 500 mg PO BID #14 tablet 04/18/22 Unknown Rx Active Meds: Active Medications Acetaminophen (Acetaminophen 325 Mg Tab) 650 mg PO Q4H PRN PRN Reason: Pain MILD(1-3)/Fever >100.5/BEAL Ondansetron HCl (Ondansetron 4 Mg/2 Ml Inj) 4 mg IV Q8H PRN PRN Reason: Nausea And Vomiting Sodium Chloride (Sodium Chloride 0.9% 10 Ml Flush Syringe) 10 ml IV BID NEDA Review of Systems All systems: negative Constitutional: fatigue, malaise, lethargy, other (Altered mental status) Exam - Constitutional Vitals: Temp Pulse Resp BP Pulse Ox 99.6 F 106 H 21 119/48 95 12/01/21 17:03 12/01/21 18:37 12/01/21 18:37 12/01/21 18:15 12/01/21 18:37 General appearance: Present: no acute distress, well-nourished - EENT Eyes: Present: PERRL ENT: hearing intact, clear oral mucosa - Neck Neck: Present: supple, normal ROM - Respiratory Respiratory effort: normal Respiratory: bilateral: diminished - Cardiovascular Heart Sounds: Present: S1 & S2. Absent: rub, click - Extremities Extremities: pulses symmetrical, No edema Peripheral Pulses: within normal limits - Abdominal General gastrointestinal: Present: soft, non-tender, non-distended, normal bowel sounds Female genitourinary: Present: normal - Integumentary Integumentary: Present: clear, warm, dry - Musculoskeletal Musculoskeletal: gait normal, strength equal bilaterally - Psychiatric Psychiatric: appropriate mood/affect, intact judgment & insight - Neurologic Neurologic: CNII-XII intact, moves all extremities HEART Score - HEART Score Troponin: Troponin T < 0.010 ng/mL (0.00-0.029) 12/01/21 18:05 Results - Labs CBC & Chem 7: 12/01/21 18:05 12/01/21 18:05 Labs: Laboratory Last Values WBC 16.2 K/mm3 (4.5-11.0) H 12/01/21 18:05 RBC 5.08 M/mm3 (3.65-5.03) H 12/01/21 18:05 Hgb 15.1 gm/dl (10.1-14.3) H 12/01/21 18:05 Hct 46.2 % (30.3-42.9) H 12/01/21 18:05 MCV 91 fl (79-97) 12/01/21 18:05 MCH 30 pg (28-32) 12/01/21 18:05 MCHC 33 % (30-34) 12/01/21 18:05 RDW 13.7 % (13.2-15.2) 12/01/21 18:05 Plt Count 358 K/mm3 (140-440) 12/01/21 18:05 Lymph % (Auto) 19.9 % (13.4-35.0) 12/01/21 18:05 [place] % (Auto) 8.9 % (0.0-7.3) H 12/01/21 18:05 Eos % (Auto) 0.1 % (0.0-4.3) 12/01/21 18:05 Baso % (Auto) 0.8 % (0.0-1.8) 12/01/21 18:05 Lymph # (Auto) 3.2 K/mm3 (1.2-5.4) 12/01/21 18:05 [place] # (Auto) 1.4 K/mm3 (0.0-0.8) H 12/01/21 18:05 Eos # (Auto) 0.0 K/mm3 (0.0-0.4) 12/01/21 18:05 Baso # (Auto) 0.1 K/mm3 (0.0-0.1) 12/01/21 18:05 Seg Neutrophils % 70.3 % (40.0-70.0) H 12/01/21 18:05 Seg Neutrophils # 11.4 K/mm3 (1.8-7.7) H 12/01/21 18:05 PT 14.3 Sec. (12.2-14.9) 12/01/21 18:05 INR 1.00 (0.87-1.13) 12/01/21 18:05 APTT 31.7 Sec. (24.2-36.6) 12/01/21 18:05 ABG pH 7.445 pH Units (7.350-7.450) 12/01/21 19:35 ABG pCO2 34.7 mm Hg 12/01/21 19:35 ABG pO2 72.9 mm Hg (80.0-90.0) L 12/01/21 19:35 ABG HCO3 23.3 mmol/L (20.0-26.0) 12/01/21 19:35 ABG O2 Saturation 95.8 % (95.0-99.0) 12/01/21 19:35 ABG O2 Content 20.3 (0.0-44) 12/01/21 19:35 ABG Base Excess -0.1 mmol/L (-2.0-3.0) 12/01/21 19:35 ABG Hemoglobin 15.4 gm/dl (12.0-16.0) 12/01/21 19:35 ABG Carboxyhemoglobin 1.3 % (0.0-5.0) 12/01/21 19:35 ABG Methemoglobin 0.6 % (0.0-1.5) 12/01/21 19:35 Oxyhemoglobin 94.0 % (95.0-99.0) L 12/01/21 19:35 FiO2 21 % 12/01/21 19:35 Sodium 137 mmol/L (137-145) 12/01/21 18:05 Potassium 4.1 mmol/L (3.6-5.0) 12/01/21 18:05 Chloride 97.0 mmol/L (98-107) L 12/01/21 18:05 Carbon Dioxide 22 mmol/L (22-30) 12/01/21 18:05 Anion Gap 22 mmol/L 12/01/21 18:05 BUN 67 mg/dL (7-17) H 12/01/21 18:05 Creatinine 1.1 mg/dL (0.6-1.2) 12/01/21 18:05 Estimated GFR 48 ml/min 12/01/21 18:05 BUN/Creatinine Ratio 61 % 12/01/21 18:05 Glucose 142 mg/dL (65-100) H 12/01/21 18:05 Lactic Acid 1.60 mmol/L (0.7-2.0) 12/01/21 18:05 Calcium 10.0 mg/dL (8.4-10.2) 12/01/21 18:05 Total Bilirubin 0.30 mg/dL (0.1-1.2) 12/01/21 18:05 AST 18 units/L (5-40) 12/01/21 18:05 ALT 16 units/L (7-56) 12/01/21 18:05 Alkaline Phosphatase 71 units/L (35-129) 12/01/21 18:05 Ammonia 29.0 umol/L (25-60) 12/01/21 18:05 Total Creatine Kinase 327 units/L (30-135) H 12/01/21 18:05 Troponin T < 0.010 ng/mL (0.00-0.029) 12/01/21 18:05 NT-Pro-B Natriuret Pep 606.0 pg/mL (0-900) 12/01/21 18:05 Total Protein 7.4 g/dL (6.3-8.2) 12/01/21 18:05 Albumin 3.9 g/dL (3.9-5) 12/01/21 18:05 Albumin/Globulin Ratio 1.1 % 12/01/21 18:05 TSH 2.300 mlU/mL (0.270-4.200) 12/01/21 18:05 Salicylates < 0.3 mg/dL (2.8-20.0) L 12/01/21 18:05 Acetaminophen 5.0 ug/mL (10.0-30.0) L 12/01/21 18:05 Plasma/Serum Alcohol < 0.01 % (0-0.07) 12/01/21 18:05 - Imaging and Cardiology Chest x-ray: report reviewed CT Scan - head: report reviewed Assessment and Plan VTE prophylaxis?: Chemical Plan of care discussed with patient/family: Yes - Patient Problems (1) Afib Current Visit: Yes Status: Acute Plan to address problem: Admit the patient to the ICU. Patient is on Cardizem drip. Will consult card iology for evaluation. Echocardiogram. Critical care evaluation .patient is on metoprolol 50 mg p.o. twice daily. Amlodipine 5 mg p.o. daily and Eliquis 5 mg p.o. twice daily twice a day. If needed please consult cardiology (2) Acute metabolic encephalopathy Current Visit: Yes Status: Acute Plan to address problem: Metabolic encephalopathy most likely secondary to ALMAS and leukocytosis. Oxygen via nasal cannula 3 liters per minute. D5 half-normal saline at the rate of 125 cc/h. Rocephin 2 g IV daily. we will recheck the CBC BMP in the morning. (3) Leukocytosis Current Visit: Yes Status: Acute Plan to address problem: Rocephin 2 g IV daily. We do the blood culture urine culture. Recheck CBC in the morning (4) Bipolar disorder Current Visit: No Status: Acute Plan to address problem: . We continue the home medication. Outpatient follow-up with psychiatry (5) Dementia Current Visit: No Status: Acute (6) Hypertension Current Visit: No Status: Acute Plan to address problem: Metoprolol 50 mg p.o. twice a day. Amlodipine 5 mg p.o. daily. We will monitor the blood pressure closely (7) DVT prophylaxis Current Visit: No Status: Acute Plan to address problem: Eliquis 5 mg p.o. twice a day. For DVT prophylaxis. Pepcid 20 mg IV every 12 hours for GI prophylaxis. Patient is a full code
[2021-12-01] MEDS ORDERED: APIXABAN 5 MG TAB PO SCH (22:00)
[2021-12-01] MEDS ORDERED: HEPARIN 5,000 UNIT/1 ML VIAL SUB-Q SCH (22:00)
[2021-12-01] MEDS ORDERED: ASPIRIN 81 MG TAB CHEW ONE (23:28)
[2021-12-01] MEDS ORDERED: SODIUM CHLORIDE 0.9% 1000 ML 1,000 ML ONE (23:28)
[2021-12-01] MEDS: cefTRIAXone/NS 2 GM/100 ML 2 GM/100 ML BAG IV SCH (23:36)
[2021-12-01] MEDS: traZODone 50 MG TAB PO SCH (23:37)
[2021-12-01] MEDS: DIVALPROEX DR 500 MG TAB PO SCH (23:37)
[2021-12-01] MEDS: AMITRIPTYLINE 10 MG TAB PO SCH (23:40)
[2021-12-01] MEDS: risperiDONE 3 MG TAB PO SCH (23:40)
[2021-12-01] MEDS: FAMOTIDINE 20 MG/2 ML INJ IV SCH (23:44)
[2021-12-01] MEDS: METOPROLOL TARTRATE 50 MG TAB PO SCH (23:44)
[2021-12-02] MEDS ORDERED: dilTIAZem 25 MG/5 ML INJ ONE (01:03)
[2021-12-02] MEDS ORDERED: dilTIAZem/D5W 100 MG/100 ML BAG IV SCH (02:00)
[2021-12-02] MEDS ORDERED: SODIUM CHLORIDE 0.9% 1000 ML 1,000 ML ONE (03:14)
[2021-12-02 04:12] LABS: Basophils # (Auto) 0.1 K/mm3 (0.0-0.1); Basophils % (Auto) 0.9 % (0.0-1.8); Eosinophils % (Auto) 0.2 % (0.0-4.3); Hematocrit 41.4 % (30.3-42.9); Hemoglobin 14.1 gm/dl (10.1-14.3); Lymphocytes # (Auto) 2.9 K/mm3 (1.2-5.4); Lymphocytes % (Auto) 26.8 % (13.4-35.0); Mean Corpuscular HGB Conc 34 % (30-34); Mean Corpuscular Volume 90 fl (79-97); Monocytes # (Auto) 1.1 K/mm3 (0.0-0.8); Monocytes % (Auto) 10.1 % (0.0-7.3); Platelet Count 256 K/mm3 (140-440); Red Blood Count 4.58 M/mm3 (3.65-5.03); Red Cell Distribution Width 13.6 % (13.2-15.2)
[2021-12-02 04:29] LABS: BUN/Creatinine Ratio 70; Blood Urea Nitrogen 63 mg/dL (7-17); Calcium 8.7 mg/dL (8.4-10.2); Hemolysis Index 8
[2021-12-02] MEDS ORDERED: METOPROLOL TARTRATE 5 MG/5 ML INJ IV ONE ×2 (04:39→05:04)
[2021-12-02] MEDS ORDERED: dilTIAZem 25 MG/5 ML INJ IV ONE (05:04)
[2021-12-02] MEDS: D5W/0.45% NACL 1,000 ML IV SCH ×2 (08:00→23:33)
[2021-12-02] MEDS ORDERED: AMIODARONE 150 MG in DEXTROSE 5% IN WATER 97 ML IV SCH (08:00)
[2021-12-02] MEDS ORDERED: SODIUM CHLORIDE 0.9% 1000 ML 1,000 ML IV ONE (08:00)
[2021-12-02] MEDS: AMIODARONE 900 MG in DEXTROSE 5% IN WATER 482 ML IV SCH (08:48)
[2021-12-02] MEDS: IPRATROPIUM/ALBUTEROL SULFATE 3 ML AMPUL.NEB IH SCH ×4 (09:27→21:33)
[2021-12-02] MEDS ORDERED: POTASSIUM CHLORIDE 20 MEQ PACKET PO SCH (10:00)
[2021-12-02] MEDS ORDERED: APIXABAN 5 MG TAB PO SCH ×2 (10:00→13:06)
--- NOTE | 2021-12-02 10:06 | Electrocardiograph Report ---
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
[2021-12-02] MEDS ORDERED: DIGOXIN 0.5 MG/2 ML INJ IV SCH (12:00)
[2021-12-02] MEDS: POTASSIUM CHLORIDE 10 MEQ 10 MEQ/100 ML BAG IV SCH ×4 (12:54→19:17)
[2021-12-02] MEDS: amLODIPine 5 MG TAB PO SCH (13:01)
--- NOTE | 2021-12-02 13:02 | Consultation ---
History of Present Illness Consult date: 12/02/21 Consult reason: atrial fibrillation History of present illness: The patient is a 76-year-old woman with no documented cardiac history, brought to the emergency room from a facility with complaints of altered mental status. Initial ECG on presentation to the emergency room was in normal sinus rhythm. During her emergency room course being evaluated for altered mental status and awaiting admission, the patient developed rapid atrial fibrillation with heart rates as high as the 190s. She was initially treated with intravenous diltiazem, which was ultimately switched to intravenous amiodarone due to the persistence of rapid atrial fibrillation with high ventricular rates. The patient appears to be breathing comfortably no acute distress, despite the persistent atrial tachyarrhythmia. Previous cardiac work-up in this hospital includes an echocardiogram done about 8 months ago, that documented normal left ventricular systolic ejection fraction 60 to 65%. Serial EKGs in the hospital showed normal sinus rhythm, no docu mented previous atrial fibrillation. The patient is noncommunicative, unable to provide a history or review of systems. Past History Past Medical History: hypertension, other (Dementia and bipolar disorder) Past Surgical History: cholecystectomy, Other (Intestinal surgery) Social history: no significant social history Family history: hypertension Medications and Allergies Allergies Allergy/AdvReac Type Severity Reaction Status Date / Time No Known Allergies Allergy Verified 12/01/21 18:48 Home Medications Medication Instructions Recorded Confirmed Last Taken Type Metoprolol [Lopressor TAB] 50 mg PO BID 02/26/19 04/13/21 04/12/21 07:00 History amLODIPine 5 mg PO DAILY 02/26/19 04/13/21 04/12/21 08:00 History risperiDONE [RisperiDONE] 3 mg PO QHS 02/26/19 04/13/21 02/25/19 20:[address] [Depakote Dr] 500 mg PO QHS 04/13/21 04/13/21 04/11/21 20:00 History risperiDONE [RisperDAL] 2 mg PO DAILY 04/13/21 04/13/21 04/12/21 07:00 History traZODone [Desyrel] 50 mg PO QHS 04/13/21 04/13/21 04/11/21 20:00 History Amitriptyline [Elavil] 10 mg PO BID tablet 04/21/21 Unknown Rx Apixaban [Eliquis] 10 mg PO BID 30 Days #120 tablet 04/21/21 Unknown Rx Perphenazine [Trilafon] 4 mg PO BID tablet 04/21/21 Unknown Rx risperiDONE [RisperDAL] 2 mg PO DAILY tablet 04/21/21 Unknown Rx Naproxen [Naprosyn] 500 mg PO BID #14 tablet 10/06/21 Unknown Rx Active Meds: Active Medications Acetaminophen (Acetaminophen 325 Mg Tab) 650 mg PO Q4H PRN PRN Reason: Pain MILD(1-3)/Fever >100.5/BEAL Albuterol (Albuterol 2.5 Mg/3 Ml Nebu) 2.5 mg IH Q3HRT PRN PRN Reason: Shortness Of Breath Albuterol/Ipratropium (Ipratropium/Albuterol Sulfate 3 Ml Ampul.Neb) 1 ampul IH Q6HRT [facility] Last Admin: 12/02/21 09:27 Dose: Not Given Amitriptyline HCl (Amitriptyline 10 Mg Tab) 10 mg PO BID [facility] Last Admin: 12/01/21 23:40 Dose: 10 mg Amlodipine Besylate (Amlodipine 5 Mg Tab) 5 mg PO DAILY [facility] Last Admin: 12/02/21 13:01 Dose: Not Given Apixaban (Apixaban 5 Mg Tab) 5 mg PO BID [facility] Digoxin (Digoxin 0.5 Mg/2 Ml Inj) 0.5 mg IV ONCE@1200 [facility] Stop: 12/02/21 15:00 Last Admin: 12/02/21 12:10 Dose: 0.5 mg Divalproex Sodium (Divalproex Dr 500 Mg Tab) 500 mg PO QHS [facility] Last Admin: 12/01/21 23:37 Dose: 500 mg Famotidine (Famotidine 20 Mg/2 Ml Inj) 20 mg IV BID [facility] Last Admin: 12/01/21 23:44 Dose: 20 mg Dextrose/Sodium Chloride (D5/0.45ns) 1,000 mls @ 125 mls/hr IV DIRECT [facility] Last Admin: 12/02/21 08:00 Dose: 125 mls/hr Ceftriaxone Sodium (Rocephin/Ns 2 Gm/100 Ml) 2 gm in 100 mls @ 200 mls/hr IV Q24H [facility]; Protocol Last Admin: 12/01/21 23:36 Dose: 200 mls/hr Amiodarone HCl 900 mg/ (Dextrose) 500 mls @ 33.333 mls/hr IV DIRECT NEDA; Protocol Last Admin: 12/02/21 08:48 Dose: 1 mg/min, 33.333 mls/hr Potassium Chloride (Kcl 10meq/100ml) 10 meq in 100 mls @ 100 mls/hr IV Q1H [facility] Stop: 12/02/21 14:59 Last Admin: 12/02/21 12:54 Dose: 100 mls/hr Metoprolol Tartrate (Metoprolol Tartrate 50 Mg Tab) 50 mg PO BID [facility] Last Admin: 12/01/21 23:44 Dose: 50 mg Morphine Sulfate (Morphine 2 Mg/1 Ml Inj) 2 mg IV Q4H PRN PRN Reason: Pain, Moderate (4-6) Morphine Sulfate (Morphine 4 Mg/1 Ml Inj) 4 mg IV Q4H PRN PRN Reason: Pain , Severe (7-10) Ondansetron HCl (Ondansetron 4 Mg/2 Ml Inj) 4 mg IV Q8H PRN PRN Reason: Nausea And Vomiting Risperidone (Risperidone 1 Mg Tab) 2 mg PO DAILY [facility] Risperidone (Risperidone 3 Mg Tab) 3 mg PO QHS [facility] Last Admin: 12/01/21 23:40 Dose: 3 mg Sodium Chloride (Sodium Chloride 0.9% 10 Ml Flush Syringe) 10 ml IV BID [facility] Last Admin: 12/02/21 02:06 Dose: 10 ml Sodium Chloride (Sodium Chloride 0.9% 10 Ml Flush Syringe) 10 ml IV PRN PRN PRN Reason: LINE FLUSH Trazodone HCl (Trazodone 50 Mg Tab) 50 mg PO QHS [facility] Last Admin: 12/01/21 23:37 Dose: 50 mg Review of Systems ROS unobtainable: due to mental status Physical Examination Vital Signs Temp Pulse Resp BP Pulse Ox 99.6 F 111 H 17 150/90 98 12/01/21 17:03 12/01/21 17:03 12/01/21 17:03 12/01/21 17:03 12/01/21 17:03 General appearance: no acute distress, cachectic HEENT: Positive: PERRL Neck: Positive: neck supple Cardiac: Positive: irregularly irregular Lungs: Positive: Decreased Breath Sounds Neuro: Positive: Weakness (Generalized lethargy) Abdomen: Positive: Soft Female genitourinary: deferred Skin: Positive: Clear Extremities: Absent: edema Results 12/02/21 03:57 12/02/21 03:57 Cardiac Enzymes 12/01/21 Range/Units 18:05 AST 18 (5-40) units/L Coagulation 12/01/21 Range/Units 18:05 PT 14.3 (12.2-14.9) Sec. INR 1.00 (0.87-1.13) APTT 31.7 (24.2-36.6) Sec. CBC 12/01/21 12/02/21 Range/Units 18:05 03:57 WBC 16.2 H 10.9 (4.5-11.0) K/mm3 RBC 5.08 H 4.58 (3.65-5.03) M/mm3 Hgb 15.1 H 14.1 (10.1-14.3) gm/dl Hct 46.2 H 41.4 (30.3-42.9) % Plt Count 358 256 (140-440) K/mm3 Lymph # (Auto) 3.2 2.9 (1.2-5.4) K/mm3 [place] # (Auto) 1.4 H 1.1 H (0.0-0.8) K/mm3 Eos # (Auto) 0.0 0.0 (0.0-0.4) K/mm3 Baso # (Auto) 0.1 0.1 (0.0-0.1) K/mm3 Comprehensive Metabolic Panel 12/01/21 12/02/21 Range/Units 18:05 03:57 Sodium 137 143 (137-145) mmol/L Potassium 4.1 3.4 L (3.6-5.0) mmol/L Chloride 97.0 L 102.9 (98-107) mmol/L Carbon Dioxide 22 22 (22-30) mmol/L BUN 67 H 63 H (7-17) mg/dL Creatinine 1.1 0.9 (0.6-1.2) mg/dL Glucose 142 H 134 H (65-100) mg/dL Calcium 10.0 8.7 (8.4-10.2) mg/dL AST 18 (5-40) units/L ALT 16 (7-56) units/L Alkaline Phosphatase 71 (35-129) units/L Total Protein 7.4 (6.3-8.2) g/dL Albumin 3.9 (3.9-5) g/dL EKG interpretations - Telemetry EKG Rhythm: Atrial Fibrillation (With rapid ventricular response) Assessment and Plan - Patient Problems (1) New onset atrial fibrillation Current Visit: Yes Status: Acute Plan to address problem: 76-year-old woman who presented to the hospital with altered mental status, while in the emergency room, developed new onset, rapid atrial fibrillation. No prior cardiac history as documented in the hospital records, and recent echocardiogram documents normal left ventricular systolic ejection fraction 60 to 65%. We will continue amiodarone and beta-blockers for rate control and atrial arrhythmia suppression therapy to return patient back to a stable sinus rhythm. She has been started on Eliquis for future stroke prophylaxis. Otherwise, conservative cardiac management, defer to internal medicine and neurology for further work-up and management of the patient's presenting alteration in mental status.
[2021-12-02] MEDS: FAMOTIDINE 20 MG/2 ML INJ IV SCH ×2 (13:44→23:32)
[2021-12-02] MEDS: METOPROLOL TARTRATE 5 MG/5 ML INJ IV PRN (13:45)
[2021-12-02] MEDS: risperiDONE 1 MG TAB PO SCH (13:49)
[2021-12-02] MEDS: METOPROLOL TARTRATE 50 MG TAB PO SCH ×2 (13:49→23:32)
[2021-12-02] MEDS: APIXABAN 2.5 MG TAB PO SCH ×2 (15:00→23:34)
[2021-12-02] MEDS: AMITRIPTYLINE 10 MG TAB PO SCH ×2 (15:02→23:34)
[2021-12-02] MEDS ORDERED: DEXTROSE 50% IN WATER (25GM) 50 ML SYRINGE IV PRN (16:00)
--- NOTE | 2021-12-02 16:06 | Progress Note ---
Assessment and Plan Assessment and plan: This is a 76 year old female with bipolar, HTN and dementia admitted with afib RVR Neuro: Acute metabolic encephalopathy, h/o bipolar disorder, dementia -Reorientation as needed -Maintain sleep-wake cycle -As needed analgesia -CT head with no acute abnormailty -Continue home Depakote, risperidone, trazodone, amitriptyline, perphenazine Cardiac: Afib with RVR, h/o HTN -Cardiology consulted, appreciate recommendations -Echo 03/2021 showed LVEF of 60-65% -Amio gtt -s/p cardizem gtt -Digoxin IV, BB PO -prn IV BB -Hypertensive regimen: Amlodipine -Anticoagulated with Eliquis -Blood pressure monitoring per protocol -Echocardiogram pending Respiratory: Acute hypoxic respiratory failure -Supplemental oxygen as needed -SPO2 monitoring -Pulmonary hygiene -Chest x-ray noted GI: NAD -PPI -Bedside swallow eval pending -ST evaluation for swallow eval -BR: colace : Hypokalemia, rhabdomyolysis -Monitor intake and output -Renally dose medications -Avoid nephrotoxic medications -Replete potassium -Trend BMP ID: SIRS -Presented with low-grade fevers, tachycardia, tachypnea -CXR showed no active infection -We will discontinue antibiotics -f/u blood culture -Monitor WBC and temperature curve Endo: NAD -Avoid hypoglycemia -Accu-Cheks q.6 hr while npo Heme: Leukocytosis (resolved) -Trend CBC -Transfuse hemoglobin less than 7 -SCDs to BLE while in bed The high probability of a clinically significant, sudden or life threatening deterioration of the [cardio] system(s) required my full and direct attention, intervention and personal management. The aggregate critical care time was [60] minutes. This time is in addition to time spent performing reported procedures but includes the following: [x] Data Review and interpretation [x] Patient assessment and monitoring of vital signs [x] Documentation [x] Medication orders and management Disposition Plan: imcu Total Time Spent with Patient (Minutes): 60 History Interval history: This is 76 year old female with bipolar, HTN, PE and left common femoral/superficial femoral/popliteal/posterior tibial and peroneal veins DVT (2020) and dementia who is a resident of a longterm [facility] presented to the ED on 12/01 wtih altered mental status via EMS. In the ED patient was noted to have Leukocytosis, lactic acidosis and CT head showed no intracranial abnormality but EKG showed Afib with RVR and was started on diltazem drip. She was admitted to the hospitalist service with A. fib RVR and acute metabolic encephalopathy with consults to cardiology. Hospitalist course to date: 12/02: Started on amio gtt as she was maxed on cardizem gtt. She was also given digoxin. On BB and echo pending. downgraded to IMCU. Hospitalist Physical - Constitutional Vitals: Temp Pulse Resp BP Pulse Ox 97.5 F L 98 H 17 103/52 99 12/02/21 08:08 12/02/21 15:08 12/02/21 15:08 12/02/21 15:08 12/02/21 15:08 General appearance: Present: no acute distress, cachectic - EENT Eyes: Present: PERRL, EOM intact ENT: poor dentition - Neck Neck: Present: normal ROM - Respiratory Respiratory effort: normal Respiratory: bilateral: diminished - Cardiovascular Rhythm: regularly irregular Heart Sounds: Present: S1 & S2. Absent: systolic murmur, diastolic murmur - Extremities Extremities: no ischemia, pulses intact, pulses symmetrical, No edema, normal temperature, normal color Peripheral Pulses: within normal limits - Abdominal General gastrointestinal: soft, non-tender, non-distended, normal bowel sounds - Integumentary Integumentary: Present: warm, dry - Neurologic Neurologic: other (responds to painful stimuli, response to questions with "i dont know") - Allied Health Allied health notes reviewed: nursing, RT, social work HEART Score - HEART Score Troponin: WBC 10.9 K/mm3 (4.5-11.0) 12/02/21 03:57 RBC 4.58 M/mm3 (3.65-5.03) 12/02/21 03:57 Hgb 14.1 gm/dl (10.1-14.3) 12/02/21 03:57 Hct 41.4 % (30.3-42.9) 12/02/21 03:57 MCV 90 fl (79-97) 12/02/21 03:57 MCH 31 pg (28-32) 12/02/21 03:57 MCHC 34 % (30-34) 12/02/21 03:57 RDW 13.6 % (13.2-15.2) 12/02/21 03:57 Plt Count 256 K/mm3 (140-440) 12/02/21 03:57 Lymph % (Auto) 26.8 % (13.4-35.0) 12/02/21 03:57 [place] % (Auto) 10.1 % (0.0-7.3) H 12/02/21 03:57 Eos % (Auto) 0.2 % (0.0-4.3) 12/02/21 03:57 Baso % (Auto) 0.9 % (0.0-1.8) 12/02/21 03:57 Lymph # (Auto) 2.9 K/mm3 (1.2-5.4) 12/02/21 03:57 [place] # (Auto) 1.1 K/mm3 (0.0-0.8) H 12/02/21 03:57 Eos # (Auto) 0.0 K/mm3 (0.0-0.4) 12/02/21 03:57 Baso # (Auto) 0.1 K/mm3 (0.0-0.1) 12/02/21 03:57 Seg Neutrophils % 62.0 % (40.0-70.0) 12/02/21 03:57 Seg Neutrophils # 6.8 K/mm3 (1.8-7.7) 12/02/21 03:57 PT 14.3 Sec. (12.2-14.9) 12/01/21 18:05 INR 1.00 (0.87-1.13) 12/01/21 18:05 APTT 31.7 Sec. (24.2-36.6) 12/01/21 18:05 ABG pH 7.445 pH Units (7.350-7.450) 12/01/21 19:35 ABG pCO2 34.7 mm Hg 12/01/21 19:35 ABG pO2 72.9 mm Hg (80.0-90.0) L 12/01/21 19:35 ABG HCO3 23.3 mmol/L (20.0-26.0) 12/01/21 19:35 ABG O2 Saturation 95.8 % (95.0-99.0) 12/01/21 19:35 ABG O2 Content 20.3 (0.0-44) 12/01/21 19:35 ABG Base Excess -0.1 mmol/L (-2.0-3.0) 12/01/21 19:35 ABG Hemoglobin 15.4 gm/dl (12.0-16.0) 12/01/21 19:35 ABG Carboxyhemoglobin 1.3 % (0.0-5.0) 12/01/21 19:35 ABG Methemoglobin 0.6 % (0.0-1.5) 12/01/21 19:35 Oxyhemoglobin 94.0 % (95.0-99.0) L 12/01/21 19:35 FiO2 21 % 12/01/21 19:35 Sodium 143 mmol/L (137-145) 12/02/21 03:57 Potassium 3.4 mmol/L (3.6-5.0) L 12/02/21 03:57 Chloride 102.9 mmol/L (98-107) 12/02/21 03:57 Carbon Dioxide 22 mmol/L (22-30) 12/02/21 03:57 Anion Gap 22 mmol/L 12/02/21 03:57 BUN 63 mg/dL (7-17) H 12/02/21 03:57 Creatinine 0.9 mg/dL (0.6-1.2) 12/02/21 03:57 Estimated GFR > 60 ml/min 12/02/21 03:57 BUN/Creatinine Ratio 70 % 12/02/21 03:57 Glucose 134 mg/dL (65-100) H 12/02/21 03:57 POC Glucose 196 mg/dL (70-105) H 12/02/21 11:59 Lactic Acid 1.10 mmol/L (0.7-2.0) 12/01/21 23:39 Calcium 8.7 mg/dL (8.4-10.2) 12/02/21 03:57 Total Bilirubin 0.30 mg/dL (0.1-1.2) 12/01/21 18:05 AST 18 units/L (5-40) 12/01/21 18:05 ALT 16 units/L (7-56) 12/01/21 18:05 Alkaline Phosphatase 71 units/L (35-129) 12/01/21 18:05 Ammonia 29.0 umol/L (25-60) 12/01/21 18:05 Total Creatine Kinase 327 units/L (30-135) H 12/01/21 18:05 Troponin T < 0.010 ng/mL (0.00-0.029) 12/01/21 18:05 NT-Pro-B Natriuret Pep 606.0 pg/mL (0-900) 12/01/21 18:05 Total Protein 7.4 g/dL (6.3-8.2) 12/01/21 18:05 Albumin 3.9 g/dL (3.9-5) 12/01/21 18:05 Albumin/Globulin Ratio 1.1 % 12/01/21 18:05 TSH 2.300 mlU/mL (0.270-4.200) 12/01/21 18:05 Salicylates < 0.3 mg/dL (2.8-20.0) L 12/01/21 18:05 Acetaminophen 5.0 ug/mL (10.0-30.0) L 12/01/21 18:05 Plasma/Serum Alcohol < 0.01 % (0-0.07) 12/01/21 18:05 Results - Labs CBC & Chem 7: 12/02/21 03:57 12/02/21 03:57 Labs: Laboratory Last Values WBC 10.9 K/mm3 (4.5-11.0) 12/02/21 03:57 RBC 4.58 M/mm3 (3.65-5.03) 12/02/21 03:57 Hgb 14.1 gm/dl (10.1-14.3) 12/02/21 03:57 Hct 41.4 % (30.3-42.9) 12/02/21 03:57 MCV 90 fl (79-97) 12/02/21 03:57 MCH 31 pg (28-32) 12/02/21 03:57 MCHC 34 % (30-34) 12/02/21 03:57 RDW 13.6 % (13.2-15.2) 12/02/21 03:57 Plt Count 256 K/mm3 (140-440) 12/02/21 03:57 Lymph % (Auto) 26.8 % (13.4-35.0) 12/02/21 03:57 [place] % (Auto) 10.1 % (0.0-7.3) H 12/02/21 03:57 Eos % (Auto) 0.2 % (0.0-4.3) 12/02/21 03:57 Baso % (Auto) 0.9 % (0.0-1.8) 12/02/21 03:57 Lymph # (Auto) 2.9 K/mm3 (1.2-5.4) 12/02/21 03:57 [place] # (Auto) 1.1 K/mm3 (0.0-0.8) H 12/02/21 03:57 Eos # (Auto) 0.0 K/mm3 (0.0-0.4) 12/02/21 03:57 Baso # (Auto) 0.1 K/mm3 (0.0-0.1) 12/02/21 03:57 Seg Neutrophils % 62.0 % (40.0-70.0) 12/02/21 03:57 Seg Neutrophils # 6.8 K/mm3 (1.8-7.7) 12/02/21 03:57 PT 14.3 Sec. (12.2-14.9) 12/01/21 18:05 INR 1.00 (0.87-1.13) 12/01/21 18:05 APTT 31.7 Sec. (24.2-36.6) 12/01/21 18:05 ABG pH 7.445 pH Units (7.350-7.450) 12/01/21 19:35 ABG pCO2 34.7 mm Hg 12/01/21 19:35 ABG pO2 72.9 mm Hg (80.0-90.0) L 12/01/21 19:35 ABG HCO3 23.3 mmol/L (20.0-26.0) 12/01/21 19:35 ABG O2 Saturation 95.8 % (95.0-99.0) 12/01/21 19:35 ABG O2 Content 20.3 (0.0-44) 12/01/21 19:35 ABG Base Excess -0.1 mmol/L (-2.0-3.0) 12/01/21 19:35 ABG Hemoglobin 15.4 gm/dl (12.0-16.0) 12/01/21 19:35 ABG Carboxyhemoglobin 1.3 % (0.0-5.0) 12/01/21 19:35 ABG Methemoglobin 0.6 % (0.0-1.5) 12/01/21 19:35 Oxyhemoglobin 94.0 % (95.0-99.0) L 12/01/21 19:35 FiO2 21 % 12/01/21 19:35 Sodium 143 mmol/L (137-145) 12/02/21 03:57 Potassium 3.4 mmol/L (3.6-5.0) L 12/02/21 03:57 Chloride 102.9 mmol/L (98-107) 12/02/21 03:57 Carbon Dioxide 22 mmol/L (22-30) 12/02/21 03:57 Anion Gap 22 mmol/L 12/02/21 03:57 BUN 63 mg/dL (7-17) H 12/02/21 03:57 Creatinine 0.9 mg/dL (0.6-1.2) 12/02/21 03:57 Estimated GFR > 60 ml/min 12/02/21 03:57 BUN/Creatinine Ratio 70 % 12/02/21 03:57 Glucose 134 mg/dL (65-100) H 12/02/21 03:57 POC Glucose 196 mg/dL (70-105) H 12/02/21 11:59 Lactic Acid 1.10 mmol/L (0.7-2.0) 12/01/21 23:39 Calcium 8.7 mg/dL (8.4-10.2) 12/02/21 03:57 Total Bilirubin 0.30 mg/dL (0.1-1.2) 12/01/21 18:05 AST 18 units/L (5-40) 12/01/21 18:05 ALT 16 units/L (7-56) 12/01/21 18:05 Alkaline Phosphatase 71 units/L (35-129) 12/01/21 18:05 Ammonia 29.0 umol/L (25-60) 12/01/21 18:05 Total Creatine Kinase 327 units/L (30-135) H 12/01/21 18:05 Troponin T < 0.010 ng/mL (0.00-0.029) 12/01/21 18:05 NT-Pro-B Natriuret Pep 606.0 pg/mL (0-900) 12/01/21 18:05 Total Protein 7.4 g/dL (6.3-8.2) 12/01/21 18:05 Albumin 3.9 g/dL (3.9-5) 12/01/21 18:05 Albumin/Globulin Ratio 1.1 % 12/01/21 18:05 TSH 2.300 mlU/mL (0.270-4.200) 12/01/21 18:05 Salicylates < 0.3 mg/dL (2.8-20.0) L 12/01/21 18:05 Acetaminophen 5.0 ug/mL (10.0-30.0) L 12/01/21 18:05 Plasma/Serum Alcohol < 0.01 % (0-0.07) 12/01/21 18:05 Microbiology: Microbiology 12/01/21 18:05 Peripheral/Venous Blood Culture - Preliminary Culture in Progress 12/01/21 18:05 Peripheral/Venous Blood Culture - Preliminary Culture in Progress Active Medications - Current Medications Current Medications: Generic Name Dose Route Start Last Admin Trade Name Freq PRN Reason Stop Dose Admin Acetaminophen 650 mg 12/01/21 21:11 Acetaminophen 325 Mg Tab PO Q4H PRN Pain MILD(1-3)/Fever >100.5/BEAL Albuterol 2.5 mg 12/01/21 21:11 Albuterol 2.5 Mg/3 Ml Nebu IH Q3HRT PRN Shortness Of Breath Albuterol/Ipratropium 1 ampul 12/02/21 02:00 12/02/21 09:27 Ipratropium/Albuterol Sulfate 3 Ml Ampul.Neb IH Not Given Q6HRT NEDA Amitriptyline HCl 10 mg 12/01/21 22:00 12/02/21 15:02 Amitriptyline 10 Mg Tab PO 10 mg BID NEDA Administration Amlodipine Besylate 5 mg 12/02/21 10:00 12/02/21 13:01 Amlodipine 5 Mg Tab PO Not Given DAILY NEDA Apixaban 2.5 mg 12/02/21 14:00 12/02/21 15:00 Apixaban 2.5 Mg Tab PO 2.5 mg Q12HR NEDA Administration Protocol Dextrose 50 ml 12/02/21 16:00 Dextrose 50% In Water (25gm) 50 Ml Syringe IV Q30MIN PRN Hypoglycemia Protocol Digoxin 0.125 mg 12/02/21 19:03 Digoxin 0.5 Mg/2 Ml Inj IV 12/02/21 20:30 ONCE NR Digoxin 0.125 mg 12/03/21 10:00 Digoxin 0.5 Mg/2 Ml Inj IV 12/06/21 10:01 QDAY NEDA Divalproex Sodium 500 mg 12/01/21 22:00 12/01/21 23:[address] 500 Mg Tab PO 500 mg QHS NEDA Administration Famotidine 20 mg 12/01/21 22:00 12/02/21 13:44 Famotidine 20 Mg/2 Ml Inj IV 20 mg BID NEDA Administration Dextrose/Sodium Chloride 1,000 mls @ 125 mls/hr 12/01/21 22:00 12/02/21 08:00 D5/0.45ns IV 125 mls/hr DIRECT NEDA Administration Ceftriaxone Sodium 2 gm in 100 mls @ 200 mls/hr 12/01/21 22:00 12/01/21 23:36 Rocephin/Ns 2 Gm/100 Ml IV 200 mls/hr Q24H NEDA Administration Protocol Amiodarone HCl 900 mg/ 500 mls @ 33.333 mls/hr 12/02/21 08:00 12/02/21 14:30 Dextrose IV 0.5 mg/min DIRECT NEDA 16.667 mls/hr Infusion Protocol 1 MG/MIN Insulin Human Regular 0 units 12/02/21 16:00 Insulin Regular, Human 100 Units/1 Ml SUB-Q Q6H NEDA Protocol Metoprolol Tartrate 50 mg 12/01/21 22:00 12/02/21 13:49 Metoprolol Tartrate 50 Mg Tab PO 50 mg BID NEDA Administration Metoprolol Tartrate 2.5 mg 12/02/21 14:00 12/02/21 13:45 Metoprolol Tartrate 5 Mg/5 Ml Inj IV 2.5 mg Q4HR PRN Administration HR> 130 Morphine Sulfate 2 mg 12/01/21 21:11 Morphine 2 Mg/1 Ml Inj IV Q4H PRN Pain, Moderate (4-6) Morphine Sulfate 4 mg 12/01/21 21:11 Morphine 4 Mg/1 Ml Inj IV Q4H PRN Pain , Severe (7-10) Ondansetron HCl 4 mg 12/01/21 21:11 Ondansetron 4 Mg/2 Ml Inj IV Q8H PRN Nausea And Vomiting Perphenazine 4 mg 12/02/21 22:00 Perphenazine 4 Mg Tab PO BID NEDA Risperidone 2 mg 12/02/21 10:00 12/02/21 13:49 Risperidone 1 Mg Tab PO 2 mg DAILY NEDA Administration Risperidone 3 mg 12/01/21 22:00 12/01/21 23:40 Risperidone 3 Mg Tab PO 3 mg QHS NEDA Administration Sodium Chloride 10 ml 12/01/21 22:00 12/02/21 02:06 Sodium Chloride 0.9% 10 Ml Flush Syringe IV 10 ml BID NEDA Administration Sodium Chloride 10 ml 12/01/21 21:11 Sodium Chloride 0.9% 10 Ml Flush Syringe IV PRN PRN LINE FLUSH Trazodone HCl 50 mg 12/01/21 22:00 12/01/21 23:37 Trazodone 50 Mg Tab PO 50 mg QHS NEDA Administration
[2021-12-02] MEDS: INSULIN REGULAR, HUMAN 100 UNITS/1 ML SUB-Q SCH ×2 (18:21→23:34)
[2021-12-02] MEDS ORDERED: DIGOXIN 0.5 MG/2 ML INJ IV NR (19:03)
[2021-12-02] MEDS: risperiDONE 3 MG TAB PO SCH (23:32)
[2021-12-02] MEDS: PERPHENAZINE 4 MG TAB PO SCH (23:32)
[2021-12-02] MEDS: cefTRIAXone/NS 2 GM/100 ML 2 GM/100 ML BAG IV SCH (23:33)
[2021-12-02] MEDS: traZODone 50 MG TAB PO SCH (23:34)
[2021-12-02] MEDS: DIVALPROEX DR 500 MG TAB PO SCH (23:34)
[2021-12-02] MEDS ORDERED: LORazepam 2 MG/ML VIAL IV ONE (23:52)
[2021-12-03] MEDS: IPRATROPIUM/ALBUTEROL SULFATE 3 ML AMPUL.NEB IH SCH ×4 (04:41→21:15)
[2021-12-03 04:59] LABS: Hematocrit 37.8 % (30.3-42.9); Hemoglobin 12.7 gm/dl (10.1-14.3); Mean Corpuscular HGB Conc 34 % (30-34); Mean Corpuscular Volume 91 fl (79-97); Platelet Count 247 K/mm3 (140-440); Red Blood Count 4.17 M/mm3 (3.65-5.03); Red Cell Distribution Width 13.4 % (13.2-15.2)
[2021-12-03 05:11] LABS: Blood Urea Nitrogen 30 mg/dL (7-17); Calcium 8.8 mg/dL (8.4-10.2); Hemolysis Index 5
[2021-12-03 05:20] LABS: BUN/Creatinine Ratio 60
[2021-12-03] MEDS: INSULIN REGULAR, HUMAN 100 UNITS/1 ML SUB-Q SCH ×3 (05:50→18:55)
[2021-12-03] MEDS ORDERED: DIGOXIN 0.5 MG/2 ML INJ IV SCH (06:47)
[2021-12-03] MEDS: AMIODARONE 900 MG in DEXTROSE 5% IN WATER 482 ML IV SCH (07:25)
[2021-12-03] MEDS: D5W/0.45% NACL 1,000 ML IV SCH (07:25)
[2021-12-03] MEDS ORDERED: VANCOMYCIN 1,250 MG in SODIUM CHLORIDE 0.9% 500 ML 500 ML IV ONE (07:44)
[2021-12-03] MEDS ORDERED: POTASSIUM CHLORIDE ER 20 MEQ TAB PO SCH (08:00)
[2021-12-03] MEDS ORDERED: VANCOMYCIN PHARMACY TO DOSE IV SCH (08:00)
[2021-12-03] MEDS: POTASSIUM CHLORIDE 10 MEQ 10 MEQ/100 ML BAG IV SCH ×2 (08:58→09:07)
[2021-12-03] MEDS ORDERED: HALOPERIDOL LACTATE 5 MG/1 ML INJ IV ONE (09:00)
--- NOTE | 2021-12-03 09:51 | Progress Note ---
Assessment and Plan Assessment and plan: This is 76 year old female with bipolar, HTN, PE and left common femoral/superficial femoral/popliteal/posterior tibial and peroneal veins DVT (2020) and dementia who is a resident of a longterm [facility] presented to the ED on 12/01 wtih altered mental status via EMS. In the ED patient was noted to have Nora kocytosis, lactic acidosis and CT head showed no intracranial abnormality but EKG showed Afib with RVR and was started on diltazem drip. She was admitted to the hospitalist service with A. fib RVR and acute metabolic encephalopathy with consults to cardiology. Hospitalist course to date: 12/02: Started on amio gtt as she was maxed on cardizem gtt. She was also given digoxin. On BB and echo pending. downgraded to IMCU. 12/03: Aggitated overnight requiring haldol. not cooperative with care team. Has not been taking home psych meds and some concern for dysphagia. Will need NG tube placed. HR more controlled this AM ranging from 90-110 bpm. Plan to continue amio gtt and digoxin IV per cardiology direction. Can eventually transition to NG meds once dobhoff placed. We will follow cardiology recommendations today. Assessment and Plan: Neuro: Acute metabolic encephalopathy, h/o bipolar disorder, dementia -Reorientation as needed -Maintain sleep-wake cycle -As needed analgesia -CT head with no acute abnormailty -Continue home Depakote, risperidone, trazodone, amitriptyline, perphenazine Cardiac: Afib with RVR, h/o HTN -Cardiology consulted, appreciate recommendations -Echo 03/2021 showed LVEF of 60-65% -Amio gtt -s/p cardizem gtt -Digoxin IV, BB PO -prn IV BB -Hypertensive regimen: Amlodipine -Anticoagulated with Eliquis -Blood pressure monitoring per protocol -Echocardiogram pending Respiratory: Acute hypoxic respiratory failure -Supplemental oxygen as needed -SPO2 monitoring -Pulmonary hygiene -Chest x-ray noted GI: NAD -PPI -Bedside swallow eval pending -ST evaluation for swallow eval -BR: colace : Hypokalemia, rhabdomyolysis -Monitor intake and output -Renally dose medications -Avoid nephrotoxic medications -Replete potassium -Trend BMP ID: SIRS -Presented with low-grade fevers, tachycardia, tachypnea -CXR showed no active infection -We will discontinue antibiotics -f/u blood culture -Monitor WBC and temperature curve Endo: NAD -Avoid hypoglycemia -Accu-Cheks q.6 hr while npo Heme: Leukocytosis (resolved) -Trend CBC -Transfuse hemoglobin less than 7 -SCDs to BLE while in bed #Preventative health care - preventative health counseling regarding management of life stressors, medication compliance and overall effect of chronic medical conditions on overall health. Encourage patient to follow up closely with with OP providers +30 minutes. The high probability of a clinically significant, sudden or life threatening deterioration of the [cardio] system(s) required my full and direct attention, intervention and personal management. The aggregate critical care time was [60] minutes. This time is in addition to time spent performing reported procedures but includes the following: [x] Data Review and interpretation [x] Patient assessment and monitoring of vital signs [x] Documentation [x] Medication orders and management History Interval history: Aggitated overnight, Ripping IV, refused all meds. Required Haldol IV. On my encounter, the patient was drowsy from sedatives admin. Hospitalist Physical - Physical exam Narrative exam: Physical Exam: VITAL SIGNS: Reviewed. GENERAL: The patient appears normally developed, Vital signs as documented. drowsy HEAD: No signs of head trauma. EYES: Pupils are equal. Extraocular motions intact. EARS: Hearing grossly intact. MOUTH: Oropharynx is normal. NECK: No adenopathy, no JVD. CHEST: Chest with clear breath sounds bilaterally. No wheezes, rales, or rhonchi. CARDIAC: irregular rhythm, ventricular rate 90-110s. S1 and S2, without murmurs, gallops, or rubs. VASCULAR: No Edema. Peripheral pulses normal and equal in all extremities. ABDOMEN: Soft, non tender and non distended. No rebound or guarding, and no masses palpated. Bowel Sounds normal. MUSCULOSKELETAL: Good range of motion of all major joints. Extremities without clubbing, cyanosis or edema. NEUROLOGIC EXAM: drowsy PSYCHIATRIC: dementia, confused SKIN: detail exam as documented in RN skin assessment - Constitutional Vitals: Temp Pulse Resp BP Pulse Ox 97.5 F L 104 H 22 109/58 99 12/02/21 08:08 12/03/21 08:00 12/03/21 08:00 12/03/21 08:00 12/03/21 08:00 General appearance: Present: no acute distress, cachectic HEART Score - HEART Score Troponin: Troponin T < 0.010 ng/mL (0.00-0.029) 12/01/21 18:05 Results - Labs CBC & Chem 7: 12/03/21 04:16 12/03/21 04:16 Labs: Laboratory Last Values WBC 10.4 K/mm3 (4.5-11.0) 12/03/21 04:16 RBC 4.17 M/mm3 (3.65-5.03) 12/03/21 04:16 Hgb 12.7 gm/dl (10.1-14.3) 12/03/21 04:16 Hct 37.8 % (30.3-42.9) 12/03/21 04:16 MCV 91 fl (79-97) 12/03/21 04:16 MCH 30 pg (28-32) 12/03/21 04:16 MCHC 34 % (30-34) 12/03/21 04:16 RDW 13.4 % (13.2-15.2) 12/03/21 04:16 Plt Count 247 K/mm3 (140-440) 12/03/21 04:16 Lymph % (Auto) 26.8 % (13.4-35.0) 12/02/21 03:57 [place] % (Auto) 10.1 % (0.0-7.3) H 12/02/21 03:57 Eos % (Auto) 0.2 % (0.0-4.3) 12/02/21 03:57 Baso % (Auto) 0.9 % (0.0-1.8) 12/02/21 03:57 Lymph # (Auto) 2.9 K/mm3 (1.2-5.4) 12/02/21 03:57 [place] # (Auto) 1.1 K/mm3 (0.0-0.8) H 12/02/21 03:57 Eos # (Auto) 0.0 K/mm3 (0.0-0.4) 12/02/21 03:57 Baso # (Auto) 0.1 K/mm3 (0.0-0.1) 12/02/21 03:57 Seg Neutrophils % 62.0 % (40.0-70.0) 12/02/21 03:57 Seg Neutrophils # 6.8 K/mm3 (1.8-7.7) 12/02/21 03:57 PT 14.3 Sec. (12.2-14.9) 12/01/21 18:05 INR 1.00 (0.87-1.13) 12/01/21 18:05 APTT 31.7 Sec. (24.2-36.6) 12/01/21 18:05 ABG pH 7.445 pH Units (7.350-7.450) 12/01/21 19:35 ABG pCO2 34.7 mm Hg 12/01/21 19:35 ABG pO2 72.9 mm Hg (80.0-90.0) L 12/01/21 19:35 ABG HCO3 23.3 mmol/L (20.0-26.0) 12/01/21 19:35 ABG O2 Saturation 95.8 % (95.0-99.0) 12/01/21 19:35 ABG O2 Content 20.3 (0.0-44) 12/01/21 19:35 ABG Base Excess -0.1 mmol/L (-2.0-3.0) 12/01/21 19:35 ABG Hemoglobin 15.4 gm/dl (12.0-16.0) 12/01/21 19:35 ABG Carboxyhemoglobin 1.3 % (0.0-5.0) 12/01/21 19:35 ABG Methemoglobin 0.6 % (0.0-1.5) 12/01/21 19:35 Oxyhemoglobin 94.0 % (95.0-99.0) L 12/01/21 19:35 FiO2 21 % 12/01/21 19:35 Sodium 134 mmol/L (137-145) L D 12/03/21 04:16 Potassium 3.4 mmol/L (3.6-5.0) L 12/03/21 04:16 Chloride 100.8 mmol/L (98-107) 12/03/21 04:16 Carbon Dioxide 21 mmol/L (22-30) L 12/03/21 04:16 Anion Gap 16 mmol/L 12/03/21 04:16 BUN 30 mg/dL (7-17) H 12/03/21 04:16 Creatinine 0.5 mg/dL (0.6-1.2) L 12/03/21 04:16 Estimated GFR > 60 ml/min 12/03/21 04:16 BUN/Creatinine Ratio 60 % 12/03/21 04:16 Glucose 186 mg/dL (65-100) H 12/03/21 04:16 POC Glucose 207 mg/dL (70-105) H 12/02/21 18:19 Lactic Acid 1.10 mmol/L (0.7-2.0) 12/01/21 23:39 Calcium 8.8 mg/dL (8.4-10.2) 12/03/21 04:16 Total Bilirubin 0.30 mg/dL (0.1-1.2) 12/01/21 18:05 AST 18 units/L (5-40) 12/01/21 18:05 ALT 16 units/L (7-56) 12/01/21 18:05 Alkaline Phosphatase 71 units/L (35-129) 12/01/21 18:05 Ammonia 29.0 umol/L (25-60) 12/01/21 18:05 Total Creatine Kinase 327 units/L (30-135) H 12/01/21 18:05 Troponin T < 0.010 ng/mL (0.00-0.029) 12/01/21 18:05 NT-Pro-B Natriuret Pep 606.0 pg/mL (0-900) 12/01/21 18:05 Total Protein 7.4 g/dL (6.3-8.2) 12/01/21 18:05 Albumin 3.9 g/dL (3.9-5) 12/01/21 18:05 Albumin/Globulin Ratio 1.1 % 12/01/21 18:05 TSH 2.300 mlU/mL (0.270-4.200) 12/01/21 18:05 Salicylates < 0.3 mg/dL (2.8-20.0) L 12/01/21 18:05 Acetaminophen 5.0 ug/mL (10.0-30.0) L 12/01/21 18:05 Plasma/Serum Alcohol < 0.01 % (0-0.07) 12/01/21 18:05 Microbiology: Microbiology 12/01/21 18:05 Peripheral/Venous Blood Culture - Preliminary Coag Negative Staphylococcus 12/01/21 18:05 Peripheral/Venous Blood Culture - Preliminary NO GROWTH AFTER 24 HOURS [place]/IV: Voiding Method External Female Catheter Active Medications - Current Medications Current Medications: Generic Name Dose Route Start Last Admin Trade Name Freq PRN Reason Stop Dose Admin Acetaminophen 650 mg 12/01/21 21:11 Acetaminophen 325 Mg Tab PO Q4H PRN Pain MILD(1-3)/Fever >100.5/BEAL Albuterol 2.5 mg 12/01/21 21:11 Albuterol 2.5 Mg/3 Ml Nebu IH Q3HRT PRN Shortness Of Breath Albuterol/Ipratropium 1 ampul 12/02/21 02:00 12/03/21 04:41 Ipratropium/Albuterol Sulfate 3 Ml Ampul.Neb IH Not Given Q6HRT NEDA Amitriptyline HCl 10 mg 12/01/21 22:00 12/02/21 23:34 Amitriptyline 10 Mg Tab PO Not Given BID NEDA Amlodipine Besylate 5 mg 12/02/21 10:00 12/02/21 13:01 Amlodipine 5 Mg Tab PO Not Given DAILY NEDA Apixaban 2.5 mg 12/02/21 14:00 12/02/21 23:34 Apixaban 2.5 Mg Tab PO Not Given Q12HR NEDA Protocol Dextrose 50 ml 12/02/21 16:00 Dextrose 50% In Water (25gm) 50 Ml Syringe IV Q30MIN PRN Hypoglycemia Protocol Digoxin 0.125 mg 12/03/21 10:00 Digoxin 0.5 Mg/2 Ml Inj IV 12/06/21 10:01 QDAY NEDA Famotidine 20 mg 12/01/21 22:00 12/02/21 23:32 Famotidine 20 Mg/2 Ml Inj IV Not Given BID NEDA Dextrose/Sodium Chloride 1,000 mls @ 125 mls/hr 12/01/21 22:00 12/03/21 07:25 D5/0.45ns IV 125 mls/hr DIRECT NEDA Administration Amiodarone HCl 900 mg/ 500 mls @ 33.333 mls/hr 12/02/21 08:00 12/03/21 07:25 Dextrose IV 0.5 mg/min DIRECT NEDA 16.667 mls/hr Administration Protocol 1 MG/MIN Potassium Chloride 10 meq in 100 mls @ 100 mls/hr 12/03/21 08:00 12/03/21 09:07 Kcl 10meq/100ml IV 12/03/21 09:59 100 mls/hr Q1H NEDA Administration Insulin Human Regular 0 units 12/03/21 06:00 12/03/21 05:50 Insulin Regular, Human 100 Units/1 Ml SUB-Q 1 units Q6HR NEDA Administration Protocol Levothyroxine Sodium 25 mcg 12/04/21 10:00 Levothyroxine 25 Mcg Tab PO DAILY@0600 NEDA Metoprolol Tartrate 50 mg 12/01/21 22:00 12/02/21 23:32 Metoprolol Tartrate 50 Mg Tab PO Not Given BID NEDA Metoprolol Tartrate 2.5 mg 12/02/21 14:00 12/02/21 13:45 Metoprolol Tartrate 5 Mg/5 Ml Inj IV 2.5 mg Q4HR PRN Administration HR> 130 Morphine Sulfate 2 mg 12/01/21 21:11 Morphine 2 Mg/1 Ml Inj IV Q4H PRN Pain, Moderate (4-6) Morphine Sulfate 4 mg 12/01/21 21:11 Morphine 4 Mg/1 Ml Inj IV Q4H PRN Pain , Severe (7-10) Ondansetron HCl 4 mg 12/01/21 21:11 Ondansetron 4 Mg/2 Ml Inj IV Q8H PRN Nausea And Vomiting Perphenazine 4 mg 12/02/21 22:00 12/02/21 23:32 Perphenazine 4 Mg Tab PO Not Given BID NEDA Potassium Chloride 40 meq 12/03/21 08:00 Potassium Chloride Er 20 Meq Tab PO 12/03/21 12:00 ONCE@0800 NEDA Risperidone 2 mg 12/02/21 10:00 12/02/21 13:49 Risperidone 1 Mg Tab PO 2 mg DAILY NEDA Administration Risperidone 3 mg 12/01/21 22:00 12/02/21 23:32 Risperidone 3 Mg Tab PO Not Given QHS NEDA Sodium Chloride 10 ml 12/01/21 22:00 12/02/21 23:35 Sodium Chloride 0.9% 10 Ml Flush Syringe IV 10 ml BID NEDA Administration Sodium Chloride 10 ml 12/01/21 21:11 Sodium Chloride 0.9% 10 Ml Flush Syringe IV PRN PRN LINE FLUSH Trazodone HCl 50 mg 12/01/21 22:00 12/02/21 23:34 Trazodone 50 Mg Tab PO Not Given QHS NEDA Valproic Acid 250 mg 12/03/21 10:00 Valproic Acid 250 Mg/5 Ml Oral Liqd FEEDTUBE BID NEDA
--- NOTE | 2021-12-03 09:55 | Electrocardiograph Report ---
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
--- NOTE | 2021-12-03 10:45 | Progress Note ---
Assessment and Plan - Patient Problems (1) New onset atrial fibrillation Current Visit: Yes Status: Acute Plan to address problem: 76-year-old woman who presented to the hospital with altered mental status, while in the emergency room, developed new onset, rapid atrial fibrillation. No prior cardiac history as documented in the hospital records, and recent echocardiogram documents normal left ventricular systolic ejection fraction 60 to 65%. We will continue amiodarone, beta-blockers and digitalis. She has been started on Eliquis for future stroke prophylaxis. Otherwise, conservative cardiac management. Subjective Date of service: 12/03/21 Principal diagnosis: Atrial fibrillation Interval history: Patient was reported to have optimal rate control of the atrial fibrillation on amiodarone, digoxin and metoprolol. Currently, she is having an NG tube inserted, which is causing obvious distress and has elevated her ventricular rate to the 150s. Objective Vital Signs Pulse Pulse Pulse Resp Resp BP BP 12/03/21 10:15 136 H 14 130/53 12/03/21 10:00 116 H 14 130/53 12/03/21 09:53 12/03/21 09:45 128 H 13 114/75 12/03/21 09:31 151 H 13 114/75 12/03/21 09:15 145 H 15 126/90 12/03/21 09:01 155 H 13 126/90 12/03/21 08:45 151 H 16 114/44 12/03/21 08:30 101 H 18 114/44 12/03/21 08:15 101 H 22 109/77 12/03/21 08:00 104 H 22 109/58 12/03/21 07:45 106 H 18 109/77 12/03/21 07:31 126 H 17 109/77 12/03/21 07:26 94 H 126/106 12/03/21 07:15 100 H 15 126/106 12/03/21 07:01 98 H 16 94/55 12/03/21 06:45 92 H 16 94/55 12/03/21 06:30 109 H 19 100/53 12/03/21 06:15 81 15 94/55 12/03/21 06:00 70 13 94/55 12/03/21 05:45 89 16 91/48 12/03/21 05:30 85 14 91/48 12/03/21 05:15 92 H 15 107/55 12/03/21 05:00 100 H 14 107/55 12/03/21 04:45 129 H 22 101/31 12/03/21 04:31 92 H 13 101/31 12/03/21 04:15 95 H 15 107/50 12/03/21 04:00 93 H 17 107/50 12/03/21 03:45 113 H 16 105/40 12/03/21 03:31 101 H 17 105/40 12/03/21 03:15 107 H 15 104/45 12/03/21 03:01 100 H 15 104/45 12/03/21 02:45 101 H 17 119/53 12/03/21 02:31 109 H 15 119/53 12/03/21 02:15 77 18 113/48 12/03/21 02:01 98 H 17 113/48 12/03/21 02:00 98 H 12/03/21 01:45 100 H 16 106/53 12/03/21 01:31 87 14 106/53 12/03/21 01:15 141 H 19 111/52 12/03/21 01:01 101 H 20 82/63 12/03/21 00:45 110 H 26 H 116/56 12/03/21 00:31 151 H 17 116/56 12/03/21 00:15 128 H 20 88/54 12/03/21 00:01 155 H 17 88/54 12/02/21 23:51 122 H 17 103/73 12/02/21 23:45 152 H 24 83/56 12/02/21 23:31 145 H 26 H 85/63 12/02/21 23:15 160 H 17 85/57 12/02/21 23:01 124 H 14 75/49 12/02/21 22:45 163 H 23 115/52 12/02/21 22:31 142 H 14 115/52 12/02/21 22:15 156 H 15 115/52 12/02/21 22:00 127 H 19 115/52 12/02/21 21:45 123 H 20 101/74 12/02/21 21:36 112 H 107 H 12/02/21 21:31 107 H 17 101/74 12/02/21 21:25 12/02/21 21:15 98 H 37 H 95/59 12/02/21 21:00 91 H 120 H 18 95/59 12/02/21 20:45 124 H 13 101/74 12/02/21 20:38 12/02/21 20:15 98 H 16 125/60 12/02/21 20:01 76 17 139/56 12/02/21 19:45 83 16 130/64 12/02/21 19:31 96 H 25 H 92/50 12/02/21 19:15 109 H 18 79/59 12/02/21 19:01 97 H 18 60/28 12/02/21 18:45 102 H 19 106/31 12/02/21 18:31 94 H 22 79/59 12/02/21 18:15 86 17 106/31 12/02/21 18:01 106 H 11 L 148/119 12/02/21 17:45 81 16 102/30 12/02/21 17:31 78 23 97/61 12/02/21 17:15 108 H 20 97/61 12/02/21 17:01 101 H 14 12/02/21 16:48 94 H 17 97/61 12/02/21 16:31 98 H 14 102/60 12/02/21 16:15 96 H 16 104/59 12/02/21 16:01 82 16 102/60 12/02/21 15:45 76 17 115/59 12/02/21 15:31 77 17 112/63 12/02/21 15:15 92 H 19 105/55 12/02/21 15:08 98 H 17 103/52 12/02/21 15:01 84 13 97/51 12/02/21 14:57 90 17 97/51 12/02/21 14:31 90 19 102/54 12/02/21 14:15 122 H 14 94/48 12/02/21 14:14 105 H 18 99/46 12/02/21 14:01 116 H 19 104/43 12/02/21 13:45 152 H 19 118/74 12/02/21 13:31 156 H 17 107/55 12/02/21 13:15 159 H 13 133/60 12/02/21 13:01 161 H 19 130/63 12/02/21 12:45 160 H 20 128/55 12/02/21 12:31 152 H 18 128/55 12/02/21 12:15 155 H 18 103/64 12/02/21 12:10 154 H 130/63 12/02/21 12:01 155 H 22 107/71 12/02/21 11:45 151 H 18 127/68 12/02/21 11:31 147 H 13 104/54 12/02/21 11:15 151 H 17 102/52 12/02/21 11:01 152 H 17 105/56 12/02/21 10:45 143 H 17 111/60 Pulse Ox 12/03/21 10:15 100 12/03/21 10:00 99 12/03/21 09:53 99 12/03/21 09:45 98 12/03/21 09:31 98 12/03/21 09:15 98 12/03/21 09:01 96 12/03/21 08:45 99 12/03/21 08:30 98 12/03/21 08:15 97 12/03/21 08:00 99 12/03/21 07:45 97 12/03/21 07:31 98 12/03/21 07:26 12/03/21 07:15 97 12/03/21 07:01 98 12/03/21 06:45 98 12/03/21 06:30 98 12/03/21 06:15 99 12/03/21 06:00 99 12/03/21 05:45 98 12/03/21 05:30 98 12/03/21 05:15 98 12/03/21 05:00 97 12/03/21 04:45 98 12/03/21 04:31 100 12/03/21 04:15 98 12/03/21 04:00 98 12/03/21 03:45 98 12/03/21 03:31 98 12/03/21 03:15 98 12/03/21 03:01 98 12/03/21 02:45 98 12/03/21 02:31 98 12/03/21 02:15 98 12/03/21 02:01 99 12/03/21 02:00 12/03/21 01:45 98 12/03/21 01:31 97 12/03/21 01:15 98 12/03/21 01:01 99 12/03/21 00:45 99 12/03/21 00:31 99 12/03/21 00:15 96 12/03/21 00:01 97 12/02/21 23:51 98 12/02/21 23:45 99 12/02/21 23:31 98 12/02/21 23:15 99 12/02/21 23:01 98 12/02/21 22:45 93 12/02/21 22:31 12/02/21 22:15 91 12/02/21 22:00 99 12/02/21 21:45 100 12/02/21 21:36 12/02/21 21:31 99 12/02/21 21:25 98 12/02/21 21:15 100 12/02/21 21:00 99 12/02/21 20:45 12/02/21 20:38 100 12/02/21 20:15 99 12/02/21 20:01 99 12/02/21 19:45 99 12/02/21 19:31 99 12/02/21 19:15 98 12/02/21 19:01 99 12/02/21 18:45 100 12/02/21 18:31 100 12/02/21 18:15 99 12/02/21 18:01 100 12/02/21 17:45 100 12/02/21 17:31 99 12/02/21 17:15 100 12/02/21 17:01 100 12/02/21 16:48 100 12/02/21 16:31 99 12/02/21 16:15 99 12/02/21 16:01 96 12/02/21 15:45 97 12/02/21 15:31 98 12/02/21 15:15 97 12/02/21 15:08 99 12/02/21 15:01 100 12/02/21 14:57 99 12/02/21 14:31 99 12/02/21 14:15 99 12/02/21 14:14 99 12/02/21 14:01 99 12/02/21 13:45 99 12/02/21 13:31 98 12/02/21 13:15 98 12/02/21 13:01 99 12/02/21 12:45 99 12/02/21 12:31 97 12/02/21 12:15 99 12/02/21 12:10 12/02/21 12:01 100 12/02/21 11:45 98 12/02/21 11:31 97 12/02/21 11:15 98 12/02/21 11:01 97 12/02/21 10:45 98 - Physical Examination General: Other (Patient is mildly distressed while undergoing NG tube placement) HEENT: Positive: PERRL Neck: Positive: neck supple Cardiac: Positive: irregularly irregular Lungs: Positive: Decreased Breath Sounds Neuro: Positive: Weakness (Generalized lethargy) Abdomen: Positive: Soft Skin: Positive: Clear Extremities: Absent: edema - Labs and Meds CBC 12/03/21 Range/Units 04:16 WBC 10.4 (4.5-11.0) K/mm3 RBC 4.17 (3.65-5.03) M/mm3 Hgb 12.7 (10.1-14.3) gm/dl Hct 37.8 (30.3-42.9) % Plt Count 247 (140-440) K/mm3 Comprehensive Metabolic Panel 12/03/21 Range/Units 04:16 Sodium 134 L D (137-145) mmol/L Potassium 3.4 L (3.6-5.0) mmol/L Chloride 100.8 (98-107) mmol/L Carbon Dioxide 21 L (22-30) mmol/L BUN 30 H (7-17) mg/dL Creatinine 0.5 L (0.6-1.2) mg/dL Glucose 186 H (65-100) mg/dL Calcium 8.8 (8.4-10.2) mg/dL
[2021-12-03] MEDS: DIGOXIN 0.5 MG/2 ML INJ IV SCH (11:31)
[2021-12-03] MEDS: METOPROLOL TARTRATE 5 MG/5 ML INJ IV PRN (12:44)
--- NOTE | 2021-12-03 13:33 | XRay Report ---
ABDOMEN 1 VIEW(S) INDICATION / CLINICAL INFORMATION: dobhoff placement. COMPARISON: None available. FINDINGS: TUBES / LINES: The distal tip of the feeding tube terminates in the duodenal bulb. BOWEL GAS PATTERN: No significant abnormality. FREE AIR / EXTRALUMINAL GAS: None seen. ADDITIONAL FINDINGS: No significant additional findings. IMPRESSION: Adequate positioning of the feeding tube. No acute abnormality in the abdomen. Signer Name: Kimani Dickson Jr, MD Signed: 12/03/2021 1:29 PM Workstation Name: [id number]
[2021-12-03] MEDS: risperiDONE 1 MG TAB PO SCH (13:54)
[2021-12-03] MEDS: VALPROIC ACID 250 MG/5 ML ORAL LIQD FEEDTUBE SCH ×2 (13:54→22:12)
[2021-12-03] MEDS: APIXABAN 2.5 MG TAB PO SCH ×2 (13:55→22:11)
[2021-12-03] MEDS: amLODIPine 5 MG TAB PO SCH (13:55)
[2021-12-03] MEDS: PERPHENAZINE 4 MG TAB PO SCH ×2 (14:00→22:11)
[2021-12-03] MEDS: METOPROLOL TARTRATE 50 MG TAB PO SCH ×2 (14:00→22:13)
[2021-12-03] MEDS: AMITRIPTYLINE 10 MG TAB PO SCH ×2 (14:00→22:14)
[2021-12-03] MEDS: FAMOTIDINE 20 MG/2 ML INJ IV SCH ×2 (14:02→22:12)
[2021-12-03] MEDS: risperiDONE 3 MG TAB PO SCH (22:11)
[2021-12-03] MEDS: traZODone 50 MG TAB PO SCH (22:11)
[2021-12-04] MEDS: D5W/0.45% NACL 1,000 ML IV SCH (00:49)
[2021-12-04] MEDS: INSULIN REGULAR, HUMAN 100 UNITS/1 ML SUB-Q SCH ×4 (00:50→18:52)
[2021-12-04] MEDS: IPRATROPIUM/ALBUTEROL SULFATE 3 ML AMPUL.NEB IH SCH (02:25)
[2021-12-04] MEDS: ACETAMINOPHEN 325 MG TAB PO PRN ×2 (06:12→21:44)
[2021-12-04] MEDS ORDERED: FAMOTIDINE 20 MG TAB FEEDTUBE SCH (09:00)
[2021-12-04] MEDS: FAMOTIDINE 20 MG TAB FEEDTUBE SCH ×2 (09:50→21:44)
[2021-12-04] MEDS: PERPHENAZINE 4 MG TAB PO SCH (09:50)
[2021-12-04] MEDS: risperiDONE 1 MG TAB PO SCH (09:50)
[2021-12-04] MEDS: APIXABAN 2.5 MG TAB PO SCH (09:51)
[2021-12-04] MEDS: AMITRIPTYLINE 10 MG TAB PO SCH ×2 (09:51→21:43)
[2021-12-04] MEDS: VALPROIC ACID 250 MG/5 ML ORAL LIQD FEEDTUBE SCH ×2 (09:51→21:44)
[2021-12-04] MEDS: DIGOXIN 0.5 MG/2 ML INJ IV SCH (09:51)
[2021-12-04] MEDS: amLODIPine 5 MG TAB PO SCH (09:52)
[2021-12-04] MEDS: METOPROLOL TARTRATE 50 MG TAB PO SCH (09:53)
[2021-12-04] MEDS ORDERED: LEVOTHYROXINE 25 MCG TAB PO SCH (10:00)
--- NOTE | 2021-12-04 11:10 | Progress Note ---
Assessment and Plan Assessment and plan: This is 76 year old female with bipolar, HTN, PE and left common femoral/superficial femoral/popliteal/posterior tibial and peroneal veins DVT (2020) and dementia who is a resident of a [facility] presented to the ED on 12/01 wtih altered mental status via EMS. In the ED patient was noted to have Nora kocytosis, lactic acidosis and CT head showed no intracranial abnormality but EKG showed Afib with RVR and was started on diltazem drip. She was admitted to the hospitalist service with A. fib RVR and acute metabolic encephalopathy with consults to cardiology. Hospitalist course to date: 12/02: Started on amio gtt as she was maxed on cardizem gtt. She was also given digoxin. On BB and echo pending. downgraded to IMCU. 12/03: Aggitated overnight requiring haldol. not cooperative with care team. Has not been taking home psych meds and some concern for dysphagia. Will need NG tube placed. HR more controlled this AM ranging from 90-110 bpm. Plan to continue amio gtt and digoxin IV per cardiology direction. Can eventually transition to NG meds once dobhoff placed. We will follow cardiology recommendations today. 12/04: HR controlled for last 12 hrs atleast. Awaiting cardiology recs regarding amio gtt continuation vs d/c. Pending issues: BALL MILL OPERATOR eval, PT eval. Will go back to personal half-way or rehab if indicated. Assessment and Plan: Neuro: Acute metabolic encephalopathy, h/o bipolar disorder, dementia -Reorientation as needed -Maintain sleep-wake cycle -As needed analgesia -CT head with no acute abnormailty -Continue home Depakote, risperidone, trazodone, amitriptyline, perphenazine Cardiac: Afib with RVR, h/o HTN -Cardiology consulted, appreciate recommendations -Echo 03/2021 showed LVEF of 60-65% -Amio gtt -s/p cardizem gtt -Digoxin IV, BB PO -prn IV BB -Hypertensive regimen: Amlodipine -Anticoagulated with Eliquis -Blood pressure monitoring per protocol -Echocardiogram pending Respiratory: Acute hypoxic respiratory failure -Supplemental oxygen as needed -SPO2 monitoring -Pulmonary hygiene -Chest x-ray noted GI: NAD -PPI -Bedside swallow eval pending -ST evaluation for swallow eval -BR: colace : Hypokalemia, rhabdomyolysis -Monitor intake and output -Renally dose medications -Avoid nephrotoxic medications -Replete potassium -Trend BMP ID: SIRS -Presented with low-grade fevers, tachycardia, tachypnea -CXR showed no active infection -We will discontinue antibiotics -f/u blood culture -Monitor WBC and temperature curve Endo: NAD -Avoid hypoglycemia -Accu-Cheks q.6 hr while npo Heme: Leukocytosis (resolved) -Trend CBC -Transfuse hemoglobin less than 7 -SCDs to BLE while in bed #Preventative health care - preventative health counseling regarding management of life stressors, medication compliance and overall effect of chronic medical conditions on overall health. Encourage patient to follow up closely with with OP providers +30 minutes. The high probability of a clinically significant, sudden or life threatening deterioration of the [cardio] system(s) required my full and direct attention, intervention and personal management. The aggregate critical care time was [60] minutes. This time is in addition to time spent performing reported procedures but includes the following: [x] Data Review and interpretation [x] Patient assessment and monitoring of vital signs [x] Documentation [x] Medication orders and management History Interval history: no acute complaints. resting comfortably not in any distress. still confused but follows commands. Hospitalist Physical - Physical exam Narrative exam: Physical Exam: VITAL SIGNS: Reviewed. GENERAL: The patient appears normally developed, Vital signs as documented. drowsy HEAD: No signs of head trauma. EYES: Pupils are equal. Extraocular motions intact. EARS: Hearing grossly intact. MOUTH: Oropharynx is normal. NECK: No adenopathy, no JVD. CHEST: Chest with clear breath sounds bilaterally. No wheezes, rales, or rhonchi. CARDIAC: irregular rhythm, ventricular rate 90-110s. S1 and S2, without murmurs, gallops, or rubs. VASCULAR: No Edema. Peripheral pulses normal and equal in all extremities. ABDOMEN: Soft, non tender and non distended. No rebound or guarding, and no masses palpated. Bowel Sounds normal. MUSCULOSKELETAL: Good range of motion of all major joints. Extremities without clubbing, cyanosis or edema. NEUROLOGIC EXAM: drowsy PSYCHIATRIC: dementia, confused SKIN: detail exam as documented in RN skin assessment - Constitutional Vitals: Temp Pulse Resp BP Pulse Ox 97.4 F L 80 16 106/40 100 12/04/21 04:00 12/04/21 09:52 12/04/21 09:00 12/04/21 09:52 12/04/21 09:00 General appearance: Present: no acute distress, cachectic HEART Score - HEART Score Troponin: Troponin T < 0.010 ng/mL (0.00-0.029) 12/01/21 18:05 Results - Labs CBC & Chem 7: 12/03/21 04:16 12/03/21 04:16 Labs: Laboratory Last Values WBC 10.4 K/mm3 (4.5-11.0) 12/03/21 04:16 RBC 4.17 M/mm3 (3.65-5.03) 12/03/21 04:16 Hgb 12.7 gm/dl (10.1-14.3) 12/03/21 04:16 Hct 37.8 % (30.3-42.9) 12/03/21 04:16 MCV 91 fl (79-97) 12/03/21 04:16 MCH 30 pg (28-32) 12/03/21 04:16 MCHC 34 % (30-34) 12/03/21 04:16 RDW 13.4 % (13.2-15.2) 12/03/21 04:16 Plt Count 247 K/mm3 (140-440) 12/03/21 04:16 Lymph % (Auto) 26.8 % (13.4-35.0) 12/02/21 03:57 [place] % (Auto) 10.1 % (0.0-7.3) H 12/02/21 03:57 Eos % (Auto) 0.2 % (0.0-4.3) 12/02/21 03:57 Baso % (Auto) 0.9 % (0.0-1.8) 12/02/21 03:57 Lymph # (Auto) 2.9 K/mm3 (1.2-5.4) 12/02/21 03:57 [place] # (Auto) 1.1 K/mm3 (0.0-0.8) H 12/02/21 03:57 Eos # (Auto) 0.0 K/mm3 (0.0-0.4) 12/02/21 03:57 Baso # (Auto) 0.1 K/mm3 (0.0-0.1) 12/02/21 03:57 Seg Neutrophils % 62.0 % (40.0-70.0) 12/02/21 03:57 Seg Neutrophils # 6.8 K/mm3 (1.8-7.7) 12/02/21 03:57 PT 14.3 Sec. (12.2-14.9) 12/01/21 18:05 INR 1.00 (0.87-1.13) 12/01/21 18:05 APTT 31.7 Sec. (24.2-36.6) 12/01/21 18:05 ABG pH 7.445 pH Units (7.350-7.450) 12/01/21 19:35 ABG pCO2 34.7 mm Hg 12/01/21 19:35 ABG pO2 72.9 mm Hg (80.0-90.0) L 12/01/21 19:35 ABG HCO3 23.3 mmol/L (20.0-26.0) 12/01/21 19:35 ABG O2 Saturation 95.8 % (95.0-99.0) 12/01/21 19:35 ABG O2 Content 20.3 (0.0-44) 12/01/21 19:35 ABG Base Excess -0.1 mmol/L (-2.0-3.0) 12/01/21 19:35 ABG Hemoglobin 15.4 gm/dl (12.0-16.0) 12/01/21 19:35 ABG Carboxyhemoglobin 1.3 % (0.0-5.0) 12/01/21 19:35 ABG Methemoglobin 0.6 % (0.0-1.5) 12/01/21 19:35 Oxyhemoglobin 94.0 % (95.0-99.0) L 12/01/21 19:35 FiO2 21 % 12/01/21 19:35 Sodium 134 mmol/L (137-145) L D 12/03/21 04:16 Potassium 3.4 mmol/L (3.6-5.0) L 12/03/21 04:16 Chloride 100.8 mmol/L (98-107) 12/03/21 04:16 Carbon Dioxide 21 mmol/L (22-30) L 12/03/21 04:16 Anion Gap 16 mmol/L 12/03/21 04:16 BUN 30 mg/dL (7-17) H 12/03/21 04:16 Creatinine 0.5 mg/dL (0.6-1.2) L 12/03/21 04:16 Estimated GFR > 60 ml/min 12/03/21 04:16 BUN/Creatinine Ratio 60 % 12/03/21 04:16 Glucose 186 mg/dL (65-100) H 12/03/21 04:16 POC Glucose 158 mg/dL (70-105) H 12/03/21 05:47 Lactic Acid 1.10 mmol/L (0.7-2.0) 12/01/21 23:39 Calcium 8.8 mg/dL (8.4-10.2) 12/03/21 04:16 Magnesium 1.80 mg/dL (1.7-2.3) 12/03/21 11:08 Total Bilirubin 0.30 mg/dL (0.1-1.2) 12/01/21 18:05 AST 18 units/L (5-40) 12/01/21 18:05 ALT 16 units/L (7-56) 12/01/21 18:05 Alkaline Phosphatase 71 units/L (35-129) 12/01/21 18:05 Ammonia 29.0 umol/L (25-60) 12/01/21 18:05 Total Creatine Kinase 327 units/L (30-135) H 12/01/21 18:05 Troponin T < 0.010 ng/mL (0.00-0.029) 12/01/21 18:05 NT-Pro-B Natriuret Pep 606.0 pg/mL (0-900) 12/01/21 18:05 Total Protein 7.4 g/dL (6.3-8.2) 12/01/21 18:05 Albumin 3.9 g/dL (3.9-5) 12/01/21 18:05 Albumin/Globulin Ratio 1.1 % 12/01/21 18:05 TSH 2.300 mlU/mL (0.270-4.200) 12/01/21 18:05 Salicylates < 0.3 mg/dL (2.8-20.0) L 12/01/21 18:05 Acetaminophen 5.0 ug/mL (10.0-30.0) L 12/01/21 18:05 Plasma/Serum Alcohol < 0.01 % (0-0.07) 12/01/21 18:05 Microbiology: Microbiology 12/01/21 18:05 Peripheral/Venous Blood Culture - Preliminary NO GROWTH AFTER 48 HOURS 12/01/21 18:05 Peripheral/Venous Blood Culture - Preliminary Coag Negative Staphylococcus Machado/IV: Voiding Method External Female Catheter Active Medications - Current Medications Current Medications: Generic Name Dose Route Start Last Admin Trade Name Freq PRN Reason Stop Dose Admin Acetaminophen 650 mg 12/01/21 21:11 12/04/21 06:12 Acetaminophen 325 Mg Tab PO 650 mg Q4H PRN Administration Pain MILD(1-3)/Fever >100.5/BEAL Albuterol 2.5 mg 12/01/21 21:11 Albuterol 2.5 Mg/3 Ml Nebu IH Q3HRT PRN Shortness Of Breath Amitriptyline HCl 10 mg 12/01/21 22:00 12/03/21 22:14 Amitriptyline 10 Mg Tab PO 10 mg BID NEDA Administration Amlodipine Besylate 5 mg 12/02/21 10:00 12/04/21 09:52 Amlodipine 5 Mg Tab PO 5 mg DAILY NEDA Administration Apixaban 2.5 mg 12/02/21 14:00 12/04/21 09:51 Apixaban 2.5 Mg Tab PO 2.5 mg Q12HR NEDA Administration Protocol Dextrose 50 ml 12/02/21 16:00 Dextrose 50% In Water (25gm) 50 Ml Syringe IV Q30MIN PRN Hypoglycemia Protocol Digoxin 0.125 mg 12/03/21 10:00 12/04/21 09:51 Digoxin 0.5 Mg/2 Ml Inj IV 12/06/21 10:01 0.125 mg QDAY NEDA Administration Famotidine 20 mg 12/04/21 10:00 12/04/21 09:50 Famotidine 20 Mg Tab FEEDTUBE 20 mg BID NEDA Administration Dextrose/Sodium Chloride 1,000 mls @ 125 mls/hr 12/01/21 22:00 12/04/21 00:49 D5/0.45ns IV 125 mls/hr DIRECT NEDA Administration Amiodarone HCl 900 mg/ 500 mls @ 33.333 mls/hr 12/02/21 08:00 06/15/22 07:25 Dextrose IV 0.5 mg/min DIRECT NEDA 16.667 mls/hr Administration Protocol 1 MG/MIN Insulin Human Regular 0 units 12/03/21 06:00 12/04/21 06:40 Insulin Regular, Human 100 Units/1 Ml SUB-Q Not Given Q6HR [facility] Protocol Levothyroxine Sodium 25 mcg 12/04/21 10:00 Levothyroxine 25 Mcg Tab PO DAILY@0600 [facility] Metoprolol Tartrate 50 mg 12/01/21 22:00 12/04/21 09:53 Metoprolol Tartrate 50 Mg Tab PO 50 mg BID NEDA Administration Metoprolol Tartrate 2.5 mg 12/02/21 14:00 12/03/21 12:44 Metoprolol Tartrate 5 Mg/5 Ml Inj IV 2.5 mg Q4HR PRN Administration HR> 130 Morphine Sulfate 2 mg 12/01/21 21:11 Morphine 2 Mg/1 Ml Inj IV Q4H PRN Pain, Moderate (4-6) Morphine Sulfate 4 mg 12/01/21 21:11 Morphine 4 Mg/1 Ml Inj IV Q4H PRN Pain , Severe (7-10) Ondansetron HCl 4 mg 12/01/21 21:11 Ondansetron 4 Mg/2 Ml Inj IV Q8H PRN Nausea And Vomiting Perphenazine 4 mg 12/02/21 22:00 12/04/21 09:50 Perphenazine 4 Mg Tab PO 4 mg BID NEDA Administration Risperidone 2 mg 12/02/21 10:00 12/04/21 09:50 Risperidone 1 Mg Tab PO 2 mg DAILY NEDA Administration Risperidone 3 mg 12/01/21 22:00 12/03/21 22:11 Risperidone 3 Mg Tab PO 3 mg QHS NEDA Administration Sodium Chloride 10 ml 12/01/21 22:00 12/04/21 09:53 Sodium Chloride 0.9% 10 Ml Flush Syringe IV 10 ml BID NEDA Administration Sodium Chloride 10 ml 12/01/21 21:11 Sodium Chloride 0.9% 10 Ml Flush Syringe IV PRN PRN LINE FLUSH Trazodone HCl 50 mg 12/01/21 22:00 12/03/21 22:11 Trazodone 50 Mg Tab PO 50 mg QHS NEDA Administration Valproic Acid 250 mg 12/03/21 10:00 12/04/21 09:51 Valproic Acid 250 Mg/5 Ml Oral Liqd FEEDTUBE 250 mg BID NEDA Administration Nutrition/Malnutrition Assess - Dietary Evaluation Nutrition/Malnutrition Findings: Nutrition Notes Start: 12/03/21 17:45 Freq: Status: Active Protocol: Document 12/03/21 17:45 NIRMALA (Rec: 12/03/21 18:25 NIRMALA [id number]) Nutrition Notes Need for Assessment generated from: community outreach advocate,MST Initial or Follow up Assessment Current Diagnosis Acute Kidney Injury,Decubitus( Pressure Ulcer),Hypertension Other Pertinent Diagnosis Atrial Fibrilation w/RVR, Metabolic Encephalopathy, Rabdomyolysis, SIRS, .. Current Diet NPO (since 12/01 21:11). Labs/Tests 12/03: Na 134, K 3.4, CO2 21, BUN 30, Crea 0.5, Glu 186. Pertinent Medications 12/03: D5/0.45ns 1000ml @ 125ml/hr, Levothyroxine, others nutritionally unremarkable. 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 Weight Status Obese Subjective/Other Information RD consult for skin risk and risk of malnutrition assessments. Pt currently on NPO. Will start TF at breakfast tomorrow after some concerns for dysphagia, prescribed and ordered by MD, I review the calculations and corrected the prescription. Pt is on Room Air, O2 saturation @ 99%, according to Physical Assessment History notes. Pt has missing teeth, according to Physical Assessment History notes. BALL MILL OPERATOR note on 12/03/21 11:32: Orders were received to perform a swallow evaluation. Per HARLEY Hand, Any, the patient was given Haladol and was not appropriate for intake at this time. Will continue to monitor. Pt presents skin wounds on buttocks and heels, according to Physical Assessment History notes. Pt shows no signs of concern for risk of malnutrition at the time, according to Physical Assessment History notes. Percent of energy/protein needs met: Pt currently on NPO. Burn Absent Trauma Absent GI Symptoms None Food Allergy No Skin Integrity/Comment Buttocks & Heels wounds. Current % PO Other Minimum of two criteria No Fluid Accumulation N/A Reduced [place] Department Manager Strength N/A (non-severe) Protein-Calorie Malnutrition N\A #1 Nutrition Diagnosis Inadequate oral intake Comments: BALL MILL OPERATOR note on 12/03/21 11:32: Orders were received to perform a swallow evaluation. Per HARLEY Hand, Any, the patient was given Haladol and was not appropriate for intake at this time. Will continue to monitor. Etiology Uncertain. As Evidenced by Signs and Symptoms Concern for dysphagia. Is patient on ventilator? No Is Patient Ambulatory and/or Out of Bed No REE-([facility]-confined to bed) 1625.184 Kcal/Kg value to use for calculation 15 Approximate Energy Requirements Using 1335 kcal/Kg Calculation Used for Recommendations Kcal/kg Additional Notes Protein: 0.8-1.2 g/Kg AdjBW; 57-85 g/day. Fluids: 1 ml/Kcal, or as per MD. Nutrition Intervention Nutrition Support: Start Vital AF 1.2 [place] @ 45 ml /hr. Flush: 75 ml water Q 4 hr, or as per MD. Kcal 1,310 Protein (gm) 82 Carbohydrates (gm) 121 Fat (gm) 59 Fluid (mL) 885 Fiber (gm) 6 % RDI: 98% Kcal; 100% AA. Goal #1 Provide at least 75% of energy /protein needs through Enteral Feeding during LOS. Goal #2 Adjust the dietary intervention to better serve Pt's needs and clinical conditions during LOS. Follow-Up By: 12/05/21 Additional Comments Start monitoring TF tolerance and BM.
[2021-12-04 12:33] LABS: Blood Urea Nitrogen 12 mg/dL (7-17); Hemolysis Index 6
[2021-12-04 12:34] LABS: BUN/Creatinine Ratio 24
--- NOTE | 2021-12-04 13:02 | Progress Note ---
Assessment and Plan - Patient Problems (1) New onset atrial fibrillation Current Visit: Yes Status: Acute Plan to address problem: 76-year-old woman who presented to the hospital with altered mental status, while in the emergency room, developed new onset, rapid atrial fibrillation. No prior cardiac history as documented in the hospital records, and recent echocardiogram documents normal left ventricular systolic ejection fraction 60 to 65%. She has reverted to a stable sinus rhythm on amiodarone, metoprolol and digitalis. Subjective Date of service: 12/04/21 Principal diagnosis: Atrial fibrillation Interval history: Patient is awake and alert, comfortably no acute distress. Has an NG tube in situ. Today, she has reverted to a stable sinus rhythm at 76. Objective Vital Signs Temp Pulse Pulse Pulse Resp Resp Resp 12/04/21 12:01 75 22 12/04/21 12:00 75 18 12/04/21 11:00 70 15 12/04/21 10:01 119 H 15 12/04/21 09:52 80 12/04/21 09:51 80 12/04/21 09:00 77 16 12/04/21 08:21 12/04/21 08:00 75 80 16 12/04/21 07:00 80 12/04/21 06:12 12 12/04/21 06:01 110 H 31 H 12/04/21 05:00 84 20 12/04/21 04:00 97.4 F L 84 84 27 H 12/04/21 03:01 85 23 12/04/21 02:00 78 16 12/04/21 01:00 84 17 12/04/21 00:45 78 12/04/21 00:00 97.1 F L 74 15 12/03/21 23:00 71 13 12/03/21 22:13 145 H 12/03/21 22:10 75 12/03/21 22:01 135 H 15 12/03/21 21:16 12/03/21 21:00 82 14 16 12/03/21 20:33 80 14 12/03/21 20:00 96.5 F L 86 88 15 20 12/03/21 19:01 75 15 12/03/21 18:45 76 14 12/03/21 18:31 69 14 12/03/21 18:15 87 17 12/03/21 18:01 86 18 12/03/21 18:00 74 06/15/22 17:45 70 22 12/03/21 17:30 72 16 12/03/21 17:15 60 19 12/03/21 17:00 69 18 12/03/21 16:45 66 16 12/03/21 16:31 77 16 12/03/21 16:15 68 15 12/03/21 16:01 75 14 12/03/21 16:00 86 18 12/03/21 15:45 80 17 12/03/21 15:31 78 14 12/03/21 15:15 82 15 12/03/21 15:01 128 H 15 12/03/21 14:45 106 H 15 12/03/21 14:31 100 H 15 12/03/21 14:15 109 H 12 12/03/21 14:00 100 H 15 12/03/21 13:55 12/03/21 13:45 95 H 14 12/03/21 13:31 118 H 15 12/03/21 13:15 103 H 16 BP Pulse Ox 12/04/21 12:01 101/39 99 12/04/21 12:00 100 12/04/21 11:00 111/49 100 12/04/21 10:01 131/33 99 12/04/21 09:52 106/40 12/04/21 09:51 106/40 12/04/21 09:00 110/42 100 12/04/21 08:21 99 12/04/21 08:00 98/45 97 12/04/21 07:00 12/04/21 06:12 12/04/21 06:01 104/44 97 12/04/21 05:00 139/76 99 12/04/21 04:00 116/57 100 12/04/21 03:01 127/52 98 12/04/21 02:00 110/56 97 12/04/21 01:00 98/62 98 12/04/21 00:45 12/04/21 00:00 107/61 97 12/03/21 23:00 108/53 98 12/03/21 22:13 129/48 12/03/21 22:10 12/03/21 22:01 127/44 96 12/03/21 21:16 98 12/03/21 21:00 114/63 99 12/03/21 20:33 124/56 97 12/03/21 20:00 123/57 98 12/03/21 19:01 119/56 98 12/03/21 18:45 97/44 12/03/21 18:31 97/44 12/03/21 18:15 97/44 12/03/21 18:01 97/44 12/03/21 18:00 12/03/21 17:45 97/44 98 12/03/21 17:30 80/50 98 12/03/21 17:15 95/47 99 12/03/21 17:00 95/47 98 12/03/21 16:45 98/47 99 12/03/21 16:31 98/47 99 12/03/21 16:15 103/46 98 12/03/21 16:01 103/46 98 12/03/21 16:00 99 12/03/21 15:45 112/55 98 12/03/21 15:31 112/55 99 12/03/21 15:15 127/52 99 12/03/21 15:01 127/52 98 12/03/21 14:45 119/59 97 12/03/21 14:31 119/59 98 12/03/21 14:15 141/57 97 12/03/21 14:00 141/57 98 12/03/21 13:55 131/59 12/03/21 13:45 131/59 98 12/03/21 13:31 131/59 98 12/03/21 13:15 130/58 99 - Physical Examination General: No Apparent Distress HEENT: Positive: PERRL Neck: Positive: neck supple Cardiac: Positive: Reg Rate and Rhythm Lungs: Positive: Decreased Breath Sounds Neuro: Positive: Grossly Intact Abdomen: Positive: Soft Skin: Positive: Clear Extremities: Absent: edema - Labs and Meds Comprehensive Metabolic Panel 12/04/21 Range/Units 11:57 Sodium 138 (137-145) mmol/L Potassium 3.8 (3.6-5.0) mmol/L Chloride 103.2 (98-107) mmol/L Carbon Dioxide 23 (22-30) mmol/L BUN 12 (7-17) mg/dL Creatinine 0.5 L (0.6-1.2) mg/dL Glucose 110 H (65-100) mg/dL Calcium 9.0 (8.4-10.2) mg/dL
[2021-12-04] MEDS: AMIODARONE 200 MG TAB FEEDTUBE SCH (14:10)
[2021-12-04] MEDS ORDERED: DIGOXIN 0.125 MG TAB FEEDTUBE SCH (17:00)
[2021-12-04] MEDS: APIXABAN 2.5 MG TAB FEEDTUBE SCH (21:43)
[2021-12-04] MEDS: traZODone 50 MG TAB PO SCH (21:44)
[2021-12-04] MEDS: PERPHENAZINE 4 MG TAB FEEDTUBE SCH (21:44)
[2021-12-04] MEDS: METOPROLOL TARTRATE 50 MG TAB FEEDTUBE SCH (21:45)
[2021-12-04] MEDS ORDERED: risperiDONE 3 MG TAB FEEDTUBE SCH (22:00)
[2021-12-05] MEDS: INSULIN REGULAR, HUMAN 100 UNITS/1 ML SUB-Q SCH ×3 (00:27→13:02)
[2021-12-05] MEDS ORDERED: LEVOTHYROXINE 25 MCG TAB FEEDTUBE SCH (06:00)
[2021-12-05] MEDS: ACETAMINOPHEN 325 MG TAB PO PRN (06:58)
[2021-12-05] MEDS: METOPROLOL TARTRATE 50 MG TAB FEEDTUBE SCH (09:30)
[2021-12-05] MEDS: APIXABAN 2.5 MG TAB FEEDTUBE SCH (09:30)
[2021-12-05] MEDS: AMIODARONE 200 MG TAB FEEDTUBE SCH (09:30)
[2021-12-05] MEDS: PERPHENAZINE 4 MG TAB FEEDTUBE SCH (09:31)
[2021-12-05] MEDS: AMITRIPTYLINE 10 MG TAB PO SCH (09:31)
[2021-12-05] MEDS: VALPROIC ACID 250 MG/5 ML ORAL LIQD FEEDTUBE SCH (09:31)
[2021-12-05] MEDS: FAMOTIDINE 20 MG TAB FEEDTUBE SCH (09:31)
[2021-12-05] MEDS ORDERED: amLODIPine 5 MG TAB FEEDTUBE SCH (10:00)
[2021-12-05] MEDS ORDERED: risperiDONE 1 MG TAB FEEDTUBE SCH (10:00)
--- NOTE | 2021-12-05 13:29 | Discharge Summary ---
Providers - Providers Date of Admission: 12/01/21 21:11 Date of discharge: 12/05/21 Attending physician: CHIKA SALINAS MD 12/02/21 01:21 Consult to Physician [CONS] Routine Comment: Consulting Provider: JAKOB REGALADO Physician Instructions: Reason For Exam: a.fib 12/02/21 15:54 Speech Therapy Evaluation and Treat [CONS] Routine Reason For Exam: swallow eval 12/02/21 16:18 Occupational Therapy Evaluate and Treat [CONS] Routine Comment: Reason For Exam: weakness Physical Therapy Evaluation and Treat [CONS] Routine Comment: Reason For Exam: weakness Primary care physician: MITRA RODRIGUEZ Hospitalization Reason for admission: confused Condition: Fair Hospital course: This is 76 year old female with bipolar, HTN, PE and left common femoral/superficial femoral/popliteal/posterior tibial and peroneal veins DVT (2020) and dementia who is a resident of a [facility] presented to the ED on 12/01 wtih altered mental status via EMS. In the ED patient was noted to have Leukocytosis, lactic acidosis and CT head showed no intracranial abnormality but EKG showed Afib with RVR and was started on diltazem drip. She was admitted to the hospitalist service with A. fib RVR and acute metabolic encephalopathy with consults to cardiology. Hospitalist course to date: 12/02: Started on amio gtt as she was maxed on cardizem gtt. She was also given digoxin. On BB and echo pending. downgraded to IMCU. 12/03: Aggitated overnight requiring haldol. not cooperative with care team. Has not been taking home psych meds and some concern for dysphagia. Will need NG tube placed. HR more controlled this AM ranging from 90-110 bpm. Plan to continue amio gtt and digoxin IV per cardiology direction. Can eventually transition to NG meds once dobhoff placed. We will follow cardiology recommendations today. 12/04: HR controlled for last 12 hrs atleast. Awaiting cardiology recs regarding amio gtt continuation vs d/c. Pending issues: PLANNING DIRECTOR eval, PT eval. Will go back to personal skilled nursing or rehab if indicated. 12/05: HR controlled. D/w cardiology ok with d/c from their standpoint. maki was able to tolerate meds and diet po. Will d/c NG. Advised patient to remain complaint on psych meds. POA informed of proper supervision of patient while she resides in [facility]. Patient instructed to follow-up with primary care physician in 3 to 5 days. She was advised to resume her home Depakote and Risperdal. Prescriptions for trazodone, amiodarone, apixaban, digoxin, metoprolol, l evothyroxine E prescribed to her pharmacy. Assessment and Plan: Neuro: Acute metabolic encephalopathy, h/o bipolar disorder, dementia -Reorientation as needed -Maintain sleep-wake cycle -As needed analgesia -CT head with no acute abnormailty -Continue home Depakote, risperidone, trazodone, amitriptyline, perphenazine Cardiac: Afib with RVR, h/o HTN -Cardiology consulted, appreciate recommendations -Echo 03/2021 showed LVEF of 60-65% -Amio gtt -s/p cardizem gtt -Digoxin IV, BB PO -prn IV BB -Hypertensive regimen: Amlodipine -Anticoagulated with Eliquis -Blood pressure monitoring per protocol -Echocardiogram pending Respiratory: Acute hypoxic respiratory failure -Supplemental oxygen as needed -SPO2 monitoring -Pulmonary hygiene -Chest x-ray noted GI: NAD -PPI -Bedside swallow eval pending -ST evaluation for swallow eval -BR: colace : Hypokalemia, rhabdomyolysis -Monitor intake and output -Renally dose medications -Avoid nephrotoxic medications -Replete potassium -Trend BMP ID: SIRS -Presented with low-grade fevers, tachycardia, tachypnea -CXR showed no active infection -We will discontinue antibiotics -f/u blood culture -Monitor WBC and temperature curve Endo: NAD -Avoid hypoglycemia -Accu-Cheks q.6 hr while npo Heme: Leukocytosis (resolved) -Trend CBC -Transfuse hemoglobin less than 7 -SCDs to BLE while in bed #Preventative health care - preventative health counseling regarding management of life stressors, medication compliance and overall effect of chronic medical conditions on overall health. Encourage patient to follow up closely with with OP providers +30 minutes. The high probability of a clinically significant, sudden or life threatening deterioration of the [cardio] system(s) required my full and direct attention, intervention and personal management. The aggregate critical care time was [60] minutes. This time is in addition to time spent performing reported procedures but includes the following: [x] Data Review and interpretation [x] Patient assessment and monitoring of vital signs [x] Documentation [x] Medication orders and management Disposition: 30 STILL A PATIENT Final Discharge Diagnosis (Prints w/discharge instructions): acute metabolic encephalopathy, atrial fibrillation with rapid ventricular response Time spent for discharge: 35 Core Measure Documentation - Palliative Care Palliative Care/ Comfort Measures: Not Applicable - Core Measures Any of the following diagnoses?: none Exam - Physical Exam Narrative exam: Physical Exam: VITAL SIGNS: Reviewed. GENERAL: The patient appears normally developed, Vital signs as documented. alert. HEAD: No signs of head trauma. EYES: Pupils are equal. Extraocular motions intact. EARS: Hearing grossly intact. MOUTH: Oropharynx is normal. NECK: No adenopathy, no JVD. CHEST: Chest with clear breath sounds bilaterally. No wheezes, rales, or rhonchi. CARDIAC: rate controlled , vent rate 60-70. S1 and S2, without murmurs, gallops, or rubs. VASCULAR: No Edema. Peripheral pulses normal and equal in all extremities. ABDOMEN: Soft, non tender and non distended. No rebound or guarding, and no masses palpated. Bowel Sounds normal. MUSCULOSKELETAL: Good range of motion of all major joints. Extremities without clubbing, cyanosis or edema. NEUROLOGIC EXAM: alert and oriented x 3 (baseline) PSYCHIATRIC: mood appropriate SKIN: detail exam as documented in RN skin assessment - Constitutional Vitals: Temp Pulse Resp BP Pulse Ox 97.8 F 62 15 108/41 97 12/05/21 07:07 12/05/21 11:30 12/05/21 11:30 12/05/21 11:30 12/05/21 11:30 Plan Follow up with: MITRA RODRIGUEZ MD [Primary Care Provider] - 3-5 Days LULÚ DAVIDSON MD [Staff Physician] - 7 Days Prescriptions: traZODone [Desyrel] 50 mg PO QHS 30 Days #30 tab Amiodarone [Cordarone 200 MG TAB] 200 mg FEEDTUBE QDAY 30 Days #30 tablet Apixaban [Eliquis] 2.5 mg FEEDTUBE Q12HR 30 Days #60 tablet Digoxin [Lanoxin] 0.125 mg PO DAILY@1700 30 Days #30 tablet Metoprolol [Lopressor TAB] 50 mg PO BID 30 Days #60 tab Levothyroxine [Synthroid] 25 mcg FEEDTUBE DAILY@0600 30 Days #30 tablet
--- NOTE | 2021-12-05 13:29 | Progress Note ---
Assessment and Plan - Patient Problems (1) New onset atrial fibrillation Current Visit: Yes Status: Acute Plan to address problem: 76-year-old woman who presented to the hospital with altered mental status, while in the emergency room, developed new onset, rapid atrial fibrillation. No prior cardiac history as documented in the hospital records, and recent echocardiogram documents normal left ventricular systolic ejection fraction 60 to 65%. She has reverted to a stable sinus rhythm on amiodarone, metoprolol and digitalis. Stable for cardiac discharge on current medical management. Subjective Date of service: 12/05/21 Principal diagnosis: Atrial fibrillation Interval history: Patient is comfortable, no cardiac complaints, no new cardiac events reported. On academic department chair, there is a stable sinus rhythm at 70. Blood pressure is stable. Objective Vital Signs Temp Pulse Pulse Resp Resp BP Pulse Ox 12/05/21 11:30 62 15 108/41 97 12/05/21 11:00 61 18 92/35 96 12/05/21 10:30 59 L 16 106/41 98 12/05/21 10:00 74 14 106/41 99 12/05/21 09:30 77 39 H 118/48 100 12/05/21 09:00 76 13 114/67 100 12/05/21 08:30 80 16 114/67 79 L 12/05/21 08:00 69 14 120/52 98 12/05/21 07:58 12 12/05/21 07:30 72 15 98/35 95 12/05/21 07:07 97.8 F 12/05/21 07:00 73 14 124/50 99 12/05/21 06:58 13 12/05/21 06:31 76 13 124/50 99 12/05/21 06:00 68 14 99/37 99 12/05/21 05:00 68 10 L 133/48 99 12/05/21 04:30 70 16 107/41 99 12/05/21 04:00 74 17 126/51 95 12/05/21 03:31 72 17 126/51 95 12/05/21 03:00 66 11 L 123/51 99 12/05/21 02:31 72 18 110/41 96 12/05/21 02:01 74 16 103/40 96 12/05/21 01:31 70 18 119/44 97 12/05/21 01:01 68 16 107/37 99 12/05/21 00:30 61 14 115/42 99 12/05/21 00:00 61 63 14 106/42 99 12/04/21 23:47 97.9 F 12/04/21 23:30 71 20 112/46 100 12/04/21 23:23 62 13 114/39 99 12/04/21 23:01 67 24 114/39 100 12/04/21 23:00 63 12/04/21 22:44 16 12/04/21 22:00 99 H 12 16 140/62 95 12/04/21 21:45 99 H 142/65 12/04/21 21:44 20 12/04/21 21:00 94 H 14 142/70 99 12/04/21 20:46 98 12/04/21 20:00 86 94 H 14 135/72 99 12/04/21 19:55 82 12/04/21 19:44 98 F 12/04/21 19:01 76 14 128/53 98 12/04/21 18:02 79 138/55 12/04/21 18:00 77 16 138/55 100 12/04/21 17:00 82 11 L 136/69 96 12/04/21 16:00 97.8 F 78 79 18 123/62 100 12/04/21 15:00 72 17 120/55 100 12/04/21 14:00 78 11 L 127/55 99 - Physical Examination General: No Apparent Distress HEENT: Positive: PERRL Neck: Positive: neck supple Cardiac: Positive: Reg Rate and Rhythm Lungs: Positive: Decreased Breath Sounds Neuro: Positive: Grossly Intact Abdomen: Positive: Soft Skin: Positive: Clear Extremities: Absent: edema
[2021-12-05 18:18] VITALS: BP 129/45
== END 2021-12-05 15:30 | disposition home health service (06) | DRG 70 ==
LOC: ED 16:48 → 4A 21:11 → CC1 12-02 01:26 → IMCU 12-02 11:53
PROVIDERS: ADMIT Hospitalist; ATTEND Internal Medicine
PROC: 4A033R1 Measurement of Arterial Saturation, Peripheral, Percutaneous Approach (ICD-10-PCS; principal; 2021-12-01)
DX: G93.41 Metabolic encephalopathy (principal); J96.01 Acute respiratory failure with hypoxia; M62.82 Rhabdomyolysis; R65.10 Systemic inflammatory response syndrome (SIRS) of non-infectious origin without acute organ dysfunction; I48.91 Unspecified atrial fibrillation; D72.829 Elevated white blood cell count, unspecified; F03.90 Unspecified dementia, unspecified severity, without behavioral disturbance, psychotic disturbance, mood disturbance, and anxiety; F31.9 Bipolar disorder, unspecified; E87.6 Hypokalemia; I10 Essential (primary) hypertension; Z82.49 Family history of ischemic heart disease and other diseases of the circulatory system; Z90.49 Acquired absence of other specified parts of digestive tract
CPT/HCPCS: 36415; 70450; 71045; 74018; 80048; 80053; 80320; 82140; 82550; 82803; 82962; 83735; 83880; 84443; 84484; 85025; 85027; 85610; 85730; 87040; 93005; 94640; 94760; G0378; J3490; J7060; J7070; Q9967; G0480; J0282; J0692; J0696; J1160; J1630; J1644; J1815; J2060; J3480; J7030